=== PATIENT | male | born 1945 | race Caucasian/White ===

== ENCOUNTER → 2016-08-07 | Outpatient (CLI) | payer BC ==
[~2016-08-07] MED LIST: ALLO300T2 PO; AMLO2.5T2 PO; ASCA500 PO; ASPI-435 PO; CALC500C3 PO; CALC500C70 PO; CENTTAB41 PO; CHOL1000 PO; CILO100T PO; CILO100T15 PO; DGRI240 INJ; FEXO1TAB46 PO; IBUP-103 PO; NIAC500T11 PO; PSEU30TA20 PO; PSYL0.524; SAW450CA5 PO; SILV1CRE73 TOP; SOTA80TA PO; TAMS0.4C38 PO; TYLOTC500 PO; VITAMIN B 12 PO; XRL10 PO; [UNRECOGNIZED DRUG - OTHER] PO
== END | disposition home or self-care (01) ==
LOC: C.LAB1850 07:54
PROVIDERS: ATTEND Urology
DX: N40.2 Nodular prostate without lower urinary tract symptoms (principal); N40.1 Benign prostatic hyperplasia with lower urinary tract symptoms; R35.1 Nocturia

== ENCOUNTER → 2016-08-15 | Outpatient (CLI) | payer BC | END | disposition home or self-care (01) | LOC: C.LABSPEC 15:03 | PROVIDERS: ATTEND Urology | DX: N39.0 Urinary tract infection, site not specified (principal) ==

== ENCOUNTER → 2016-08-15 | Outpatient (CLI) | payer BC | END | disposition home or self-care (01) | LOC: C.PATHSPEC 15:15 | PROVIDERS: ATTEND Urology | DX: C61 Malignant neoplasm of prostate (principal) ==

== ENCOUNTER → 2016-08-29 | Outpatient (CLI) | payer BC ==
[2016-08-29 09:49] LABS: BLOOD UREA NITROGEN 22 mg/dl (7-18)
== END | disposition home or self-care (01) ==
LOC: C.LAB 08:15
PROVIDERS: ATTEND Urology
DX: C61 Malignant neoplasm of prostate (principal)

== ENCOUNTER → 2016-09-02 | Day surgery (SDC) | payer BC ==
[~2016-09-02] VITALS: Ht 177.8 cm; Wt 95.0 kg
[~2016-09-02] MED LIST changes: +OPTIRAY 320 IV PRN; +SODIUM CHLORIDE 0.9% 1000ML 1,000 ML IV SCH
[2016-09-02 09:34] VITALS: BP 161/81; PULSE 65; TEMP 36.6; O2SAT 99; Ht 177.8 cm; Wt 95.0 kg
--- NOTE | 2016-09-02 11:35 | DIAGNOSTIC IMAGING REPORT ---
ABDOMEN AND PELVIS CT WITH IV AND ORAL CONTRAST CT DOSE: 940.44 mGycm HISTORY: Prostate carcinoma prostate carcinoma TECHNIQUE: Multiaxial CT images of the abdomen and pelvis were performed following the use of intravenous and oral contrast. COMPARISON STUDY: None. FINDINGS: Pleural calcifications of both lung bases. Basilar parenchyma shows no evidence for infiltrative or nodular change. Liver enhances uniformly. Spleen is unremarkable. Pancreas is within normal limits. There are bilateral extrarenal pelves versus mild bilateral hydroureteronephrosis. There is a mildly distended to a slightly distended bladder. Prostate is moderately enlarged. There is moderate atherosclerotic change of the abdominal aorta. There is no significant perinephric adenopathy. There are several scattered colonic diverticuli with no evidence for diverticulitis. IMPRESSION: 1. Mild bilateral hydroureteronephrosis. 2. This potentially is on the basis of a component of bladder outlet obstruction and prostatic enlargement. 3. Scattered sigmoid diverticuli with no evidence of diverticulitis. 4. Basilar calcific pleural plaques 5. Mild degenerative change of the osseous structures with no true lytic or blastic components. 6. No evidence for metastatic disease based on this exam Electronically signed by: Vargas Yeh M.D. 09/02/2016 11:34 AM Dictated Date/Time: 09/02/2016 11:28 AM
--- NOTE | 2016-09-02 13:38 | DIAGNOSTIC IMAGING REPORT ---
WHOLE-BODY NUCLEAR BONE SCAN CLINICAL HISTORY: Prostate cancer. COMPARISON STUDY: CT scan of the chest dated 05/27/2013. Abdominal CT dated 09/02/2016. TECHNIQUE: Three hours following the IV administration of 26.4 mCi of technetium 99m MDP, whole body nuclear bone scan was performed in the anterior and posterior projections. FINDINGS: There is no abnormal osseous tracer deposition identified typical in appearance for bony metastatic disease. Typically degenerative uptake is identified in the shoulders, sternoclavicular joints, wrists, knees, ankles, feet, and the right first metatarsophalangeal joint. Typically degenerative activity is also seen in the thoracolumbar spine. There is pooling of tracer within the dilated left renal collecting system consistent with hydronephrosis. This was seen on today's CT scan. Normal excreted activity is present within the right renal collecting system and the bladder. IMPRESSION: 1. There is no abnormal tracer deposition and typical in appearance for bony metastatic disease. 2. Multiple foci of typically degenerative activity as above. 3. Left-sided hydronephrosis is observed. Electronically signed by: Michael Alfredo M.D. 09/02/2016 1:37 PM Dictated Date/Time: 09/02/2016 1:31 PM
== END | disposition home or self-care (01) ==
LOC: C.MTU 09:02
PROVIDERS: ATTEND Urology
DX: C61 Malignant neoplasm of prostate (principal); N18.2 Chronic kidney disease, stage 2 (mild)

== ENCOUNTER → 2016-11-20 | Outpatient (CLI) | payer BC ==
[~2016-11-20] MED LIST changes: +GABA-113 PO; -IBUP-103 PO; -OPTIRAY 320 IV PRN; -SODIUM CHLORIDE 0.9% 1000ML 1,000 ML IV SCH; -[UNRECOGNIZED DRUG - OTHER] PO
[2016-11-20 10:32] LABS: URINE APPEARANCE CLEAR (CLEAR); URINE BILIRUBIN NEG (NEG); URINE COLOR YELLOW; URINE EPITHELIAL CELL AUTO 0-5 /lpf (0-5); URINE NITRITE NEG (NEG); URINE SPECIFIC GRAVITY 1.019 (1.000-1.030); UROBILINOGEN NEG (NEG)
[2016-11-20 10:34] LABS: HEMATOCRIT 40.1 % (42-52); MEAN CELL VOLUME 97.1 fL (80-100); MEAN CORPUSCULAR HEMOGLOBIN 31.7 pg (25-34); MEAN CORPUSCULAR HGB CONC 32.7 g/dl (32-36); PLATELET COUNT 256 K/uL (130-400); RED BLOOD COUNT 4.13 M/uL (4.7-6.1)
[2016-11-20 10:38] LABS: MANUAL MICROSCOPIC REQUIRED? NO; REVIEW REQ? NO
[2016-11-20 11:01] LABS: URINE PROTIEN/CREAT RATIO 0.1 (0-0.2); URINE TOTAL PROTEIN 12.8 mg/dl (0-11.9)
[2016-11-20 11:11] LABS: BLOOD UREA NITROGEN 21 mg/dl (7-18); BUN/CREATININE RATIO 19.4 (10-20); CALCIUM 9.1 mg/dl (8.5-10.1); CARBON DIOXIDE 29 mmol/L (21-32); CHLORIDE 106 mmol/L (98-107); GLUCOSE 91 mg/dl (70-99); PHOSPHORUS 3.5 mg/dl (2.5-4.9); POTASSIUM 4.1 mmol/L (3.5-5.1); SODIUM 139 mmol/L (136-145)
== END | disposition home or self-care (01) ==
LOC: C.LAB1850 09:26
PROVIDERS: ATTEND Internal Medicine Nephrology
DX: I12.9 Hypertensive chronic kidney disease with stage 1 through stage 4 chronic kidney disease, or unspecified chronic kidney disease (principal); N18.2 Chronic kidney disease, stage 2 (mild); E55.9 Vitamin D deficiency, unspecified; I73.9 Peripheral vascular disease, unspecified

== ENCOUNTER → 2016-12-15 | Outpatient (CLI) | payer BC ==
[~2016-12-15] MED LIST changes: -SAW450CA5 PO
--- NOTE | 2016-12-15 12:30 | DIAGNOSTIC IMAGING REPORT ---
ULTRASOUND OF THE CAROTID ARTERIES CLINICAL HISTORY: CAROTID ARTERY STENOSIS COMPARISON STUDY: 12/10/2012 TECHNIQUE: Real-time, grayscale, and color Doppler sonography of the carotid arteries was performed. Imaging reviewed in the transverse and longitudinal planes. NASCET criteria was utilized for stenosis calcification. FINDINGS: There is extensive atherosclerotic plaque present bilaterally. The peak systolic velocity within the right internal carotid artery is 106 cm/sec. The systolic velocity ratio of right internal to common carotid artery is 1.5. The peak systolic velocity within the left internal carotid artery is 199 cm/sec. The systolic velocity ratio left internal to common carotid artery is 2.3. Antegrade flow is seen in the vertebral arteries. The external carotid arteries are patent. Blood pressure in the right arm measured 134 mm/Hg. Blood pressure in the left arm measured 138 mm/Hg. IMPRESSION: Moderate bilateral atheromatous change. 50-69% stenosis of the left internal carotid artery. Electronically signed by: Jared Puga M.D. 12/15/2016 12:29 PM Dictated Date/Time: 12/15/2016 12:27 PM
== END | disposition home or self-care (01) ==
LOC: C.ULTR 11:03
PROVIDERS: ATTEND Surgery
DX: I65.29 Occlusion and stenosis of unspecified carotid artery (principal)

== ENCOUNTER → 2017-02-20 | Outpatient (CLI) | payer BC ==
[~2017-02-20] MED LIST changes: -GABA-113 PO
[2017-02-20 08:46] VITALS: BP 155/94; PULSE 69; TEMP 36.9; O2SAT 96
--- NOTE | 2017-02-20 10:41 | Radiation Oncology Follow-Up ---
Radiation Oncology Follow-Up Date of Visit Feb 20, 2017. Reason For Visit One-month follow-up and cancer survivorship care plan Radiation Completion Date 01/19/17 Diagnosis (1) Prostate cancer Status: Resolved Onset Date: 08/15/2016 Location: both lobes of the prostate Histology Subtype: adenocarcinoma Stage: ll Permanent Comment: Rising PSA, pretreatment PSA 42.8 Status post ultrasound-guided biopsies 08/15/2016 Adenocarcinoma of the prostate Joanne 4+3 and 4+4 Prostate volume 46.7 Prostate density 0.916 Initiation of hormone suppression, plan for continuation for 2 years Status post completion of radiation therapy with IMRT/IGRT 01/19/2017. Received 7,740 cGy. Last Edited By: Massiel Feliciano on Feb 20, 2017 10:41 History of Present Illness Mr. Baker is a 71-year-old gentleman with multiple comorbidities who has been suffering with low back pain and urinary obstructive symptoms. He was seen by Dr. George Anderson who evaluated the patient and did perform a digital rectal exam which did reveal a firm prostate gland that was very tender on the right side. The patient then had a PSA drawn on 08/07/[address] Anderson recommended a transrectal ultrasound-guided biopsy of the prostate which was completed on 08/15/2016 and revealed a 46.7 cc prostate gland. Pathology revealed prostate cancer involving 8/9 cores. The highest Burwell score was 4+4 and there was perineural invasion present. The patient did have a CT of the abdomen and pelvis and bone scan completed on 09/02/2016 which revealed no evidence of pelvic lymph node involvement or bony metastatic disease. The CT abdomen and pelvis did note mild bilateral hydroureteronephrosis potentially due to bladder outlet obstruction and prostatic enlargement. Dr. Anderson discuss treatment options including surgery potentially followed by adjuvant radiation therapy as well as androgen deprivation therapy with radiation therapy. Due to the patient's high risk prostate cancer, the patient has been started on firmagon by Dr. Anderson. We are now seeing the patient in consultation to discuss the role of radiation therapy. Currently, the patient is doing relatively okay. His urinary IPSS score is 19/ 35 and his EPIC QoL score is 29/60. He denies any hematuria but still has some mild rectal plane. He denies any rectal bleeding at this point. He did receive his first firmagon injection on 09/11/2016. All options of treatment were reviewed with patient. Ultimately his decision was to receive hormone suppression and external beam radiation therapy. The radiation was completed 01/19/2017. He received 7740 cGy. Interim History He is been stable from urinary standpoint since the end of treatment. Today he gave an AUA score of 11. At the end of treatment he had a score of 13. He completed expanded prostate cancer index composite for clinical practice and gave a score of 4 of 12 and urinary incontinence symptoms. He gave a score of 6 of 12 and urinary irritation symptoms. He gave a score of 7 of 12 and bowel symptoms. He gave a score of 11 of 12 and sexual symptoms. He gave a score of 7 of 12 and hormonal vitality symptoms. His total was 35 of 60. He does relate that he has been having problems with his right leg. 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 He has some swelling. He has pain which causes him to have difficulty completing work today. He is unable to take anti-inflammatories due to his renal status. Allergies Coded Allergies: [place] (Verified Allergy, Intermediate, "Tongue blisters with too many walnuts", 09/02/16) Azithromycin (Verified Allergy, Mild, "Temp spike", 09/02/16) Statins (Verified Allergy, Unknown, CREATINKINASE, 09/02/16) Morphine (Verified Adverse Reaction, Severe, "PASSED OUT", 09/02/16) Prednisone (Verified Adverse Reaction, Severe, LOWER EXTREMITY EDEMA, 09/02) Home Medications Scheduled Acetaminophen (Tylenol), 1,000 MG PO DAILY Allopurinol (Zyloprim), 300 MG PO DAILY Amlodipine Besylate (Norvasc), 5 MG PO DAILY Ascorbic Acid (Vitamin C *), 1,000 MG PO DAILY Aspirin (Aspirin 81), 81 MG PO DAILY Calcium Carbonate (Tums), 1 TAB PO DIRECTED Calcium/Vitamin D (Os-Jonn 500 Plus D), 1 TAB PO BID Cholecalciferol (Vitamin D3), 1 TABLET PO BID Cilostazol (Pletal), 100 MG PO QPM Q2DAY Cilostazol (Pletal), 100 MG PO QAM Degarelix Acetate (Firmagon), 240 MG INJ DIRECTED Fexofenadine Hcl (Meme), 180 MG PO DAILY Niacin (Niacin), 1,000 MG PO DAILY Silver Sulfadiazine (Silvadene), TOP BID Sotalol Hcl (Sotalol Hcl), 80 MG PO BID Tamsulosin Hcl (Flomax), 0.4 MG PO HS [Centrum Silver], 1 TABLET PO DAILY [Vitamin B 12], 1,000 MCG PO BID [Xrl10], 20 MG PO DAILY@1645 Scheduled PRN Pseudoephedrine (Sudafed), 30 MG PO Q4-6H PRN for Nasal Congestion Silver Sulfadiazine (Silvadene), 1 APPLN TOP BID PRN for Affected Skin Folds Miscellaneous Medications Psyllium (Metamucil) Review of Systems Gastrointestinal: Symptoms: WNL Oral: Symptoms: No Problems Respiratory: Symptoms: WNL Urinary: Symptoms: Burning Comments: very rare burning on urination, much better Skin: Symptoms: No Problems Additional Notes: He completed a distress management report and answered "no" to all questions other than he has worry about his diagnosis. He does have some feeling of depression related to this. He is concerned about getting around due to the length discomfort he's been having. We have asked him to see his PCP or vascular specialist in regards to his ongoing leg issues. Physical Exam Vital Signs Date Time Temp Pulse Resp B/P (MAP) Pulse Ox O2 Delivery O2 Flow Rate FiO2 02/20/17 08:46 36.9 69 20 155/94 96 Pain: Pain Onset: worse in last month Pain Duration: years intermittenly Side: Right Patient Pain Scale: 0 - 10 Initial Pain Intensity: 3.0 Pain Description: Sharp, Aching Additional Comments: pain is increased lately, can't go to work due to can' t stand for >4 hours Fatigue: None General Appearance: no apparent distress Eyes: normal inspection, EOMI ENT: normal ENT inspection, hearing grossly normal Respiratory/Chest: lungs clear, no respiratory distress, no accessory muscle use Cardiovascular: regular rate, rhythm, no gallop, no murmur Extremities: + pertinent finding (mild swelling and tenderness of the right calf.) Neurologic/Psychiatric: no motor/sensory deficits, alert, normal mood/affect Skin: warm/dry Laboratory Studies Test 11/20/16 09:29 White Blood Count 6.50 K/uL (4.8-10.8) Red Blood Count 4.13 M/uL (4.7-6.1) Hemoglobin 13.1 g/dL (14.0-18.0) Hematocrit 40.1 % (42-52) Mean Corpuscular Volume 97.1 fL (80-100) Mean Corpuscular Hemoglobin 31.7 pg (25-34) Mean Corpuscular Hemoglobin Concent 32.7 g/dl (32-36) RDW Standard Deviation 46.4 fL (36.4-46.3) RDW Coefficient of Variation 13.2 % (11.5-14.5) Platelet Count 256 K/uL (130-400) Mean Platelet Volume 9.0 fL (7.4-10.4) Urine Color YELLOW Urine Appearance CLEAR (CLEAR) Urine pH 5.0 (4.5-7.5) Urine Specific [place] 1.019 (1.000-1.030) Urine Protein NEG (NEG) Urine Glucose (UA) NEG (NEG) Urine Ketones NEG (NEG) Urine Occult Blood NEG (NEG) Urine Nitrite NEG (NEG) Urine Bilirubin NEG (NEG) Urine Urobilinogen NEG (NEG) Urine Leukocyte Esterase SMALL (NEG) Urine WBC (Auto) 5-10 /hpf (0-5) Urine RBC (Auto) 0-4 /hpf (0-4) Urine Hyaline Casts (Auto) 1-5 /lpf (0-5) Urine Epithelial Cells (Auto) 0-5 /lpf (0-5) Urine Bacteria (Auto) NEG (NEG) Urine Random Creatinine 99.0 mg/dl Urine Random Total Protein 12.8 mg/dl (0-11.9) Urine Protein/Creatinine Ratio 0.1 (0-0.2) Sodium Level 139 mmol/L (136-145) Potassium Level 4.1 mmol/L (3.5-5.1) Chloride Level 106 mmol/L (98-107) Carbon Dioxide Level 29 mmol/L (21-32) Anion Gap 4.0 mmol/L (3-11) Blood Urea Nitrogen 21 mg/dl (7-18) Creatinine 1.10 mg/dl (0.60-1.40) Estimated GFR () 79.0 Estimated GFR (Non- 68.1 BUN/Creatinine Ratio 19.4 (10-20) Random Glucose 91 mg/dl (70-99) Calcium Level 9.1 mg/dl (8.5-10.1) Phosphorus Level 3.5 mg/dl (2.5-4.9) Albumin 3.6 gm/dl (3.4-5.0) 25-Hydroxy Vitamin D Total 33.0 ng/ml (30-100) Parathyroid Hormone (Intact) 34.5 pg/mL (11.1-79.5) Additional Studies He had a PSA 02/16/2017. This was 0.2. Assessment & Plan Plan: The patient was also seen today by Dr. St. For the issues he is having with his right lower extremity we have asked him to see his primary physician or vascular specialist. He has a follow-up appointment with Dr. Anderson. He'll continue hormone suppression through Dr. Anderson's office. He 'll be seeing him every 4 months and having recheck PSAs. Today we completed a cancer survivorship care plan. A copy the document was given to the patient. We asked him to return to our office in 6 months. He has a written order for a PSA before his next visit. He may call if he has any questions or concerns in the interim. ADDENDUM: I agree with note created by Massiel Feliciano PA-C. I reviewed the patient's chart and information with her. I have examined and evaluated the patient. I reviewed relevant clinical information and answered the patient's and /or family's questions. GENETIC SCIENTIST Total Time In Follow-Up I spent 20 minutes speaking to the patient performing examination. I spent 20 minutes reviewing information, preparing the survivorship document, and completing this note. I spent 15 minutes examining and counseling the patient. GENETIC SCIENTIST Copy To Isaac Parekh D.O.; George Anderson M.D.
== END | disposition home or self-care (01) ==
LOC: C.ONC 08:33
PROVIDERS: ATTEND Physician Assistant Medical
DX: Z08 Encounter for follow-up examination after completed treatment for malignant neoplasm (principal); Z92.3 Personal history of irradiation; Z85.46 Personal history of malignant neoplasm of prostate

== ENCOUNTER → 2017-02-26 | Outpatient (CLI) | payer BC ==
[2017-02-26 10:07] LABS: HEMATOCRIT 37.5 % (42-52); MEAN CELL VOLUME 98.9 fL (80-100); MEAN CORPUSCULAR HEMOGLOBIN 33.2 pg (25-34); MEAN CORPUSCULAR HGB CONC 33.6 g/dl (32-36); MEAN PLATELET VOLUME 8.9 fL (7.4-10.4); PLATELET COUNT 245 K/uL (130-400); RED BLOOD COUNT 3.79 M/uL (4.7-6.1); WHITE BLOOD COUNT 4.55 K/uL (4.8-10.8)
[2017-02-26 10:44] LABS: ALT/SGPT 21 U/L (12-78); AST/SGOT 15 U/L (15-37); BLOOD UREA NITROGEN 18 mg/dl (7-18); BUN/CREATININE RATIO 15.2 (10-20); CARBON DIOXIDE 28 mmol/L (21-32); CHLORIDE 107 mmol/L (98-107); GLUCOSE 116 mg/dl (70-99); POTASSIUM 4.3 mmol/L (3.5-5.1); SODIUM 140 mmol/L (136-145)
[2017-02-26 10:47] LABS: ALB/GLOB RATIO 0.9 (0.9-2); ALKALINE PHOSPHATASE 110 U/L (45-117)
[2017-02-26 13:01] LABS: URINE APPEARANCE CLEAR (CLEAR); URINE BILIRUBIN NEG (NEG); URINE COLOR DK YELLOW; URINE EPITHELIAL CELL AUTO 0-5 /lpf (0-5); URINE NITRITE NEG (NEG); URINE SPECIFIC GRAVITY 1.026 (1.000-1.030); UROBILINOGEN NEG (NEG)
[2017-02-26 13:07] LABS: URINE PROTIEN/CREAT RATIO 0.1 (0-0.2); URINE TOTAL PROTEIN 19.3 mg/dl (0-11.9)
[2017-02-26 13:13] LABS: MANUAL MICROSCOPIC REQUIRED? NO; REVIEW REQ? NO
== END | disposition home or self-care (01) ==
LOC: C.LAB1850 09:08
PROVIDERS: ATTEND Internal Medicine Nephrology
DX: N18.2 Chronic kidney disease, stage 2 (mild) (principal); E55.9 Vitamin D deficiency, unspecified; E78.5 Hyperlipidemia, unspecified; C61 Malignant neoplasm of prostate; I12.9 Hypertensive chronic kidney disease with stage 1 through stage 4 chronic kidney disease, or unspecified chronic kidney disease

== ENCOUNTER → 2017-06-04 | Day surgery (SDC) | payer BC ==
[~2017-06-04] VITALS: Ht 176.5 cm; Wt 101.0 kg
[~2017-06-04] MED LIST changes: +GABA-113 PO; +OPTIRAY 320 IV PRN; +SODIUM CHLORIDE 0.9% 1000ML 1,000 ML IV SCH
[2017-06-04 12:08] VITALS: BP 152/77; PULSE 93; TEMP 36.8; O2SAT 98; BMI 32.4
[2017-06-04 12:22] VITALS: BP 152/77; PULSE 93; TEMP 36.8; O2SAT 98; Ht 176.5 cm; Wt 101.0 kg
--- NOTE | 2017-06-04 14:29 | DIAGNOSTIC IMAGING REPORT ---
SOFT TISSUE NECK WITH CLINICAL HISTORY: 71 years-old Male presenting with CERVICAL LYMPHADENOPATHY. TECHNIQUE: Multidetector CT of the neck was performed after the administration of intravenous contrast. IV contrast: 94 mL of Optiray 320. A dose lowering technique was used consistent with the principles of ALARA (as low as reasonably achievable). COMPARISON: None. CT DOSE (mGy.cm): The estimated cumulative dose is 615.95 mGy.cm. FINDINGS: Change Control Specialist topogram: Unremarkable. The right neck demonstrates an enlarged right submandibular lymph node measuring 13 mm in the short axis (series 3 image 231). Ill-defined soft tissue along the anterior old medial aspect of the right sternocleidomastoid, which appears to narrow the transiting right internal jugular vein. This ill-defined soft tissue is of the same attenuation as the adjacent right sternocleidomastoid muscle and is indistinguishable from it. A faint node within this region may be the source with extracapsular extension (series 3 image 223). An enlarged adjacent lymph node noted more inferiorly and posteriorly measuring 13 mm in long axis (series 3 image 255), posterior to the internal jugular vein but anterior to the posterior margin of the sternocleidomastoid. Additional more inferior node is less enlarged but with similar heterogeneous enhancement measuring 8 mm in the long axis (series 3 image 295), posterior to the posterior margin of both the sternocleidomastoid and left internal jugular vein. The left neck demonstrates a heterogeneously enhancing nodule in the left jugulodigastric region near the left angle the mandible, measuring 15 mm in the long axis (series 3 image 212). Several adjacent smaller lymph nodes. Slight asymmetry of the glossotonsillar sulcus on the right with suggestion of an enhancing mass at the right base of the tongue measuring 3.6 x 2.1 cm (series 3 image 217) series. This appears to cross the midline but does not significantly extend posterolaterally along the glossotonsillar sulcus towards the right tonsil. The valleculae are not effaced. Asymmetry of the piriform sinuses likely within the range of normal. Normal thyroid. Atherosclerosis of bilateral carotid arteries with atherosclerotic plaque narrowing the origin of the left internal carotid artery, which has a minimum diameter of 2.7 mm in comparison to the normal distal diameter of 4.2 mm (less than 50% stenosis). Mild degenerative changes of the cervical spine. Paranasal sinuses and mastoid air cells clear. Lung apices demonstrate smooth interlobular septal thickening. IMPRESSION: 1. Findings concerning for a 3.6 cm enhancing nodular mass at the right base of the tongue without michael extension posterolaterally along the glossotonsillar sulcus. Direct visualization is advised. 2. Bilateral heterogeneously enhancing lymph nodes concerning for metastatic spread of disease with central necrosis. Importantly, extracapsular extension of lymph node involvement is suspected given the ill-defined soft tissue mass infiltrating the right sternocleidomastoid muscle. The largest discrete lymph node in the right cervical chain measures 13 mm in the long axis, and the largest lymph node in the left cervical chain measures 15 mm in the long axis. The report will be called/faxed according to standard departmental protocol. Electronically signed by: Lee Verma M.D. 06/04/2017 2:28 PM Dictated Date/Time: 06/04/2017 2:14 PM
== END | disposition home or self-care (01) ==
LOC: C.MTU 11:26 → EDSTATUS 12:00
PROVIDERS: ATTEND Otolaryngology
DX: R22.0 Localized swelling, mass and lump, head (principal); R59.0 Localized enlarged lymph nodes

== ENCOUNTER → 2017-06-18 | Outpatient (CLI) | payer BC ==
[~2017-06-18] MED LIST changes: -OPTIRAY 320 IV PRN; -PSEU30TA20 PO; -PSYL0.524; -SODIUM CHLORIDE 0.9% 1000ML 1,000 ML IV SCH
[2017-06-18 09:24] LABS: HEMATOCRIT 37.2 % (42-52); MEAN CELL VOLUME 96.9 fL (80-100); MEAN CORPUSCULAR HEMOGLOBIN 32.3 pg (25-34); MEAN CORPUSCULAR HGB CONC 33.3 g/dl (32-36); MEAN PLATELET VOLUME 9.2 fL (7.4-10.4); PLATELET COUNT 215 K/uL (130-400); RED BLOOD COUNT 3.84 M/uL (4.7-6.1)
[2017-06-18 09:27] LABS: URINE APPEARANCE CLEAR (CLEAR); URINE BILIRUBIN NEG (NEG); URINE COLOR YELLOW; URINE EPITHELIAL CELL AUTO 0-5 /lpf (0-5); URINE NITRITE NEG (NEG); URINE PH 6.5 (4.5-7.5); URINE SPECIFIC GRAVITY 1.018 (1.000-1.030); UROBILINOGEN NEG (NEG)
[2017-06-18 09:29] LABS: MANUAL MICROSCOPIC REQUIRED? NO; REVIEW REQ? NO
[2017-06-18 09:43] LABS: CREATININE, URINE 77.6 mg/dl; URINE PROTIEN/CREAT RATIO 0.2 (0-0.2); URINE TOTAL PROTEIN 11.8 mg/dl (0-11.9)
[2017-06-18 09:51] LABS: ALT/SGPT 21 U/L (12-78); BLOOD UREA NITROGEN 16 mg/dl (7-18); BUN/CREATININE RATIO 16.2 (10-20); CALCIUM 9.2 mg/dl (8.5-10.1); CARBON DIOXIDE 25 mmol/L (21-32); CHLORIDE 102 mmol/L (98-107); CREATININE 1.01 mg/dl (0.60-1.40); GLUCOSE 89 mg/dl (70-99); SODIUM 134 mmol/L (136-145)
[2017-06-18 09:54] LABS: ALB/GLOB RATIO 0.9 (0.9-2); ALKALINE PHOSPHATASE 121 U/L (45-117); AST/SGOT 20 U/L (15-37)
== END | disposition home or self-care (01) ==
LOC: C.LAB1850 08:25
PROVIDERS: ATTEND Internal Medicine Nephrology
DX: N18.2 Chronic kidney disease, stage 2 (mild) (principal); I10 Essential (primary) hypertension; I73.9 Peripheral vascular disease, unspecified; E55.9 Vitamin D deficiency, unspecified

== ENCOUNTER → 2017-08-10 | Day surgery (SDC) | payer OTHER ==
[2017-08-05 07:51] VITALS: BMI 31.0
[~2017-08-10] VITALS: Ht 175.3 cm; Wt 95.5 kg
[~2017-08-10] MED LIST changes: +ACET-1256 PO; +ACETAMINOPHEN 325 MG TAB PO SCH; +AMLO-110 PO; -AMLO2.5T2 PO; -ASCA500 PO; +ASCO10003 PO; +ASPCH81X PO; -ASPI-435 PO; +ATROPINE SULFATE 0.1 MG/ML 5ML SYR IV PRN; +BUPIVACAINE 0.5 % 5 MG/1 ML MPF 30ML VIAL ONE; -CALC500C3 PO; -CALC500C70 PO; +CEFAZOLIN 2000MG IV PUSH 15 ML IV SCH; -CENTTAB41 PO; -CILO100T15 PO; +CYAN100020 PO; -DGRI240 INJ; +DGRI80 INJ; +EpHEDrine SULFATE INJ 50 MG/ML AMP IV PRN; +FENTANYL CITRATE INJ 50 MCG/1 ML 2 ML VIAL IV PRN; +FENTANYL CITRATE INJ 50 MCG/1 ML 2 ML VIAL ONE; -FEXO1TAB46 PO; +FEXO1TAB49 PO; +IBUPROFEN 600 MG TAB PO PRN; +KETAMINE HCL INJ 50 MG/ML 10 ML VIAL ONE; +LACTATED RINGER'S 1000ML 1,000 ML IV SCH; +LIDOCAINE 2% 20 MG/ML 5ML SYR IV ONE; +LIDOCAINE HCL 1% 20 ML VIAL ONE; +LIDOCAINE HCL 2% 2 ML VIAL (20MG/ML) ONE; +MIDAZOLAM HCL 1 MG/ML 2ML VIAL ONE; +MULT-1093 PO; +ONDA8TAB6 PO; +ONDANSETRON INJ 2 MG/ML 2 ML VIAL IV PRN; +OYST500T47 PO; +PHENYLEPHRINE 100MCG/ML 5ML SYR IV PRN; +PROPOFOL IV EMULSION 10 MG/ML 20 ML VIAL IV ONE; +RIVA1TAB4 PO; -SILV1CRE73 TOP; +SODIUM CHLORIDE 0.9% 1000ML 1,000 ML IV SCH; -TYLOTC500 PO; -VITAMIN B 12 PO; -XRL10 PO; +[UNRECOGNIZED DRUG - CODE]; +[UNRECOGNIZED DRUG - OTHER]
[2017-08-10 10:54] VITALS: BP 148/75; PULSE 65; TEMP 36.8; O2SAT 96; Ht 175.3 cm; Wt 95.5 kg
--- NOTE | 2017-08-10 13:09 | History & Physical Bridge Note ---
H&P Re-Evaluation Bridge Note: I have examined the patient, reviewed the History & Physical and in the interval since the performance of the History & Physical I have noted the following changes of clinical significance: No changes noted
--- NOTE | 2017-08-10 14:31 | [facility] Post Operative Brief Note ---
Immediate Operative Summary Operative Date Aug 10, 2017. Pre-Operative Diagnosis Need for Can Handler Central Venous Access Post-Operative Diagnosis Need for Can Handler Central Venous Access Procedure(s) Performed Placement of A-Port Surgeon Dr Billings Radiator Cleaner Surgeon(s) RONA Daniels Estimated Blood Loss 5cc Findings Consistent with Post-Op Diagnosis Specimens None per surgeon Drains None Anesthesia Type MAC Complication(s) none
--- NOTE | 2017-08-10 14:43 | Discharge Instructions ---
Discharge Instructions Date of Service Aug 10, 2017. Admission Reason for Admission: Circulatory System Disorder Discharge Discharge Diagnosis / Problem: Same, need for furnace liner central venous access Discharge Goals Goal(s): Improve disease control Activity Recommendations Activity Limitations: per Instructions/Follow-up section Lifting Limitations: no more than 10 pounds (with left arm for 1 week) Shower/Bathe: tomorrow (shower only) . Instructions / Follow-Up Instructions / Follow-Up MEDICATIONS: Resume previous medications unless instructed otherwise by your surgeon. * Ibuprofen 600 mg every 6 hours with food * Tylenol 650 mg every 4 hours, as needed for pain SPECIAL CARE INSTRUCTIONS: * Your A-port may be used immediately. * May shower in 24 hours. Let water run over area and pat dry. * Leave op-site dressing on for 2 days and then remove. * Call the surgeon's office with any questions or concerns - (ex. temperature higher than 101 degrees F, excessive bleeding or pain). FOLLOW UP VISIT: If not already scheduled, please call the office to schedule a two week follow- up appointment if there are any issues with the port. Office number Current Hospital Diet Patient's current hospital diet: Discharge Diet Recommended Diet: N/A Procedures Procedures Performed: Placement of A-Port Pending Studies Studies pending at discharge: no Medical Emergencies . Who to Call and When: Medical Emergencies: If at any time you feel your situation is an emergency, please call 911 immediately. . Non-Emergent Contact Non-Emergency issues call your: Primary Care Provider, Surgeon Call Non-Emergent contact if: your pain is worsening, wound has increased redness, wound has increased pain . "Provider Documentation" section prepared by Vargas Billings. . VTE Core Measure Inpt VTE Proph given/why not?: Treatment not indicated
--- NOTE | 2017-08-10 14:51 | Anesthesiology Progress Note ---
Anesthesia Post Op Note Date & Time Aug 10, 2017 at 14:51 Vital Signs Pain Intensity: 0 Vital Signs Past 12 Hours Date Time Temp Pulse Resp B/P (MAP) Pulse Ox O2 Delivery O2 Flow Rate FiO2 08/10/17 14:45 55 12 133/69 100 Oxymask 10 08/10/17 14:37 36.1 77 14 132/75 100 Oxymask 10 08/10/17 10:54 36.8 65 18 148/75 (99) 96 Room Air Notes Mental Status: alert / awake / arousable, participated in evaluation Pt Amnestic to Procedure: Yes Nausea / Vomiting: adequately controlled Pain: adequately controlled Airway Patency, RR, SpO2: stable & adequate BP & HR: stable & adequate Hydration State: stable & adequate Anesthetic Complications: no major complications apparent
--- NOTE | 2017-08-10 15:15 | DIAGNOSTIC IMAGING REPORT ---
CHEST ONE VIEW PORTABLE HISTORY: 72 years-old Male S/P placement of Aport status post placement of a left subclavian [id number] catheter. COMPARISON: Chest radiograph 05/28/2013, PET CT 06/24/2017 TECHNIQUE: Portable AP view of the chest FINDINGS: Cardiac silhouette is within normal limits. Atherosclerosis of the aorta. Left subclavian [id number] catheter is noted with distal tip terminating in the expected region of the mid SVC. Chronic bilateral reticular opacities are again seen in addition to bilateral calcified pleural plaques. No pneumothorax or large pleural effusion or lobar airspace consolidation. Bones of the chest appear grossly intact. IMPRESSION: 1. Status post placement of a left subclavian [id number] catheter with distal tip terminating in the region of the mid SVC. No postprocedural pneumothorax identified. 2. Chronic bilateral reticular opacities suggest scarring with calcified pleural plaques. The above report was generated using voice recognition software. It may contain grammatical, syntax or spelling errors. Electronically signed by: Mo Del Toro M.D. 08/10/2017 3:14 PM Dictated Date/Time: 08/10/2017 3:11 PM
[2017-08-10 15:26] VITALS: BP 131/63; PULSE 62; TEMP 36.5; O2SAT 99
[2017-08-10 15:56] VITALS: BP 141/78; PULSE 62; TEMP 36.6; O2SAT 99
--- NOTE | 2017-08-10 19:00 | OPERATIVE REPORT ---
DATE OF OPERATION: 08/10/2017 PREOPERATIVE DIAGNOSIS: Need for long-term central venous access. POSTOPERATIVE DIAGNOSIS: Same. PROCEDURE: Placement of A-port tunneled central venous access catheter with port. SURGEON: Dr. Billings. PAYLOADER MACHINE OPERATOR: Sherry Chowdhury PA-C FINDINGS: The tip of the catheter was placed in the superior vena cava near the junction with the right atrium. There was good blood return and it was easily flushed without leaking. TECHNIQUE: The patient was given a minimal intravenous sedation and the area was prepped and draped in the usual sterile fashion. A gore of the skin and subcutaneous tissue in the left infraclavicular area were anesthetized with 1% Xylocaine without epinephrine. The left subclavian vein was entered on the first attempt and the wire passed with ease. The tip of the wire was confirmed in the right atrium by fluoroscopy. A small incision was made in the skin at the exit site of the wire and a pocket was created in the subcutaneous tissue to ensure soft turn in the catheter. The site for the port was chosen and the skin and subcutaneous tissue superior to that area were anesthetized with 1% Xylocaine without epinephrine. Skin incision was made and was carried down through the subcutaneous tissue to the prepectoral fascia. Hemostasis was obtained at all times using cautery. A prepectoral pocket was created inferior to that incision and the port fit nicely. Introducer sheath device was passed over the wire under fluoroscopic guidance. The introducer and wire were removed. The catheter was passed through the sheath under fluoroscopic guidance and the tip was seen to enter the right atrium. The sheath was peeled. The catheter was then tunneled from the infraclavicular incision to the port incision. Fluoroscopy was used to size the catheter and it was then cut to size and attached to the port with ease. The port was secured to the prepectoral fascia with interrupted sutures of 2-0 Prolene. The port was accessed and there was good blood return and it was easily flushed without leaking. The port incision was closed with running 2-0 Vicryl in the deep subcutaneous tissue, running 3-0 Vicryl in the superficial subcutaneous tissue and running 4-0 Monocryl for the skin. The infraclavicular incision was closed with an interrupted 4-0 Monocryl subcuticular suture. Skin was cleansed, dried and a dressing placed. The estimated blood loss was 5 mL. Sponge, needle and instrument counts were correct x2 prior to closure. The patient tolerated the surgical procedure without complication and the patient was transferred to recovery. I attest to the content of the Intraoperative Record and any orders documented therein. Any exception s are noted below.
== END | disposition home or self-care (01) ==
LOC: C.ACU 10:20
PROVIDERS: ATTEND Surgery
DX: C01 Malignant neoplasm of base of tongue (principal); I48.91 Unspecified atrial fibrillation; I10 Essential (primary) hypertension; Z88.5 Allergy status to narcotic agent; Z90.89 Acquired absence of other organs; Z98.890 Other specified postprocedural states; Z79.01 Long term (current) use of anticoagulants; Z79.899 Other long term (current) drug therapy; Z87.891 Personal history of nicotine dependence; E66.9 Obesity, unspecified

== ENCOUNTER → 2017-09-23 | Outpatient (CLI) | payer OTHER ==
[~2017-09-23] MED LIST changes: -ACETAMINOPHEN 325 MG TAB PO SCH; -ATROPINE SULFATE 0.1 MG/ML 5ML SYR IV PRN; -BUPIVACAINE 0.5 % 5 MG/1 ML MPF 30ML VIAL ONE; +CALC-5 PO; -CEFAZOLIN 2000MG IV PUSH 15 ML IV SCH; -EpHEDrine SULFATE INJ 50 MG/ML AMP IV PRN; -FENTANYL CITRATE INJ 50 MCG/1 ML 2 ML VIAL IV PRN; -FENTANYL CITRATE INJ 50 MCG/1 ML 2 ML VIAL ONE; -IBUPROFEN 600 MG TAB PO PRN; -KETAMINE HCL INJ 50 MG/ML 10 ML VIAL ONE; -LACTATED RINGER'S 1000ML 1,000 ML IV SCH; -LIDOCAINE 2% 20 MG/ML 5ML SYR IV ONE; -LIDOCAINE HCL 1% 20 ML VIAL ONE; -LIDOCAINE HCL 2% 2 ML VIAL (20MG/ML) ONE; -MIDAZOLAM HCL 1 MG/ML 2ML VIAL ONE; +NUTR1.5L4 PEG; +ONDA-170 PO; -ONDA8TAB6 PO; -ONDANSETRON INJ 2 MG/ML 2 ML VIAL IV PRN; -OYST500T47 PO; -PHENYLEPHRINE 100MCG/ML 5ML SYR IV PRN; -PROPOFOL IV EMULSION 10 MG/ML 20 ML VIAL IV ONE; -SODIUM CHLORIDE 0.9% 1000ML 1,000 ML IV SCH; +[UNRECOGNIZED DRUG - SUPPLY] TOP
[2017-09-23 10:58] LABS: HEMATOCRIT 34.8 % (42-52); HEMOGLOBIN 11.7 g/dL (14.0-18.0); MEAN CELL VOLUME 90.6 fL (80-100); MEAN CORPUSCULAR HEMOGLOBIN 30.5 pg (25-34); MEAN CORPUSCULAR HGB CONC 33.6 g/dl (32-36); MEAN PLATELET VOLUME 9.4 fL (7.4-10.4); PLATELET COUNT 207 K/uL (130-400); RED CELL DISTRIBUTION WIDTH CV 14.5 % (11.5-14.5); RED CELL DISTRIBUTION WIDTH SD 47.6 fL (36.4-46.3); WHITE BLOOD COUNT 6.26 K/uL (4.8-10.8)
[2017-09-23 11:25] LABS: ALBUMIN 2.7 gm/dl (3.4-5.0); ALT/SGPT 43 U/L (12-78); AST/SGOT 30 U/L (15-37); BLOOD UREA NITROGEN 19 mg/dl (7-18); CALCIUM 9.1 mg/dl (8.5-10.1); CARBON DIOXIDE 27 mmol/L (21-32); CREATININE 0.85 mg/dl (0.60-1.40); GLUCOSE 99 mg/dl (70-99); POTASSIUM 3.8 mmol/L (3.5-5.1); SODIUM 138 mmol/L (136-145)
[2017-09-23 11:30] LABS: ALKALINE PHOSPHATASE 141 U/L (45-117); TOTAL PROTEIN 7.2 gm/dl (6.4-8.2)
== END | disposition home or self-care (01) ==
LOC: C.LAB1850 09:55
PROVIDERS: ATTEND Internal Medicine Nephrology
DX: C61 Malignant neoplasm of prostate (principal); N18.2 Chronic kidney disease, stage 2 (mild); I12.9 Hypertensive chronic kidney disease with stage 1 through stage 4 chronic kidney disease, or unspecified chronic kidney disease; E55.9 Vitamin D deficiency, unspecified

== ENCOUNTER → 2017-10-30 | Outpatient (CLI) | payer OTHER ==
[2017-10-30 07:31] VITALS: BP 114/68; PULSE 68; TEMP 36.9; O2SAT 98
--- NOTE | 2017-10-30 11:11 | Radiation Oncology Follow-Up ---
Radiation Oncology Follow-Up Date of Visit Oct 30, 2017. Reason For Visit One-month follow-up Radiation Completion Date 09/30/17 to base of tongue and lymph node mets;L-spine 09/09/17 Diagnosis (1) Squamous cell carcinoma of base of tongue Status: Acute Onset Date: 06/17/2017 Location: Base of tongue with node metastasis Stage: IV Permanent Comment: Carcinoma of the skin of the preauricular area Swelling and discomfort leading to the CT 06/04/2017 Finding of a mass of the right base of the tongue Status post FNA of a right level II lymph node 06/17/2017 Squamous cell carcinoma with focal keratinization Status post PET/CT 06/24/2017 FDG avidity at L4, metastatic squamous cell carcinoma versus metastatic prostate carcinoma Biopsy to be scheduled. Clinical stage T3 N2c M1 Status post completion of combined radiation and chemotherapy. Radiation was completed September 30, 2017. He received 6996 cGy Last Edited By: Massiel Feliciano on Oct 09, 2017 10:11 (2) Prostate cancer Status: Acute Onset Date: 08/15/2016 Location: Both lobes of the prostate Histology Subtype: Adenocarcinoma Stage: IV Permanent Comment: Rising PSA, pretreatment PSA 42.8 Status post ultrasound-guided biopsies 08/15/2016 Adenocarcinoma of the prostate Joanne 4+3 and 4+4 Prostate volume 46.7 Prostate density 0.916 Initiation of hormone suppression, plan for continuation for 2 years Status post completion of radiation therapy with IMRT/IGRT 01/19/2017. Received 7,740 cGy. 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 He received 3000 cGy. Last Edited By: Massiel Feliciano on Oct 09, 2017 10 :11 History of Present Illness Mr. Baker has multiple comorbidities who has been suffering with low back pain and urinary obstructive symptoms. He was seen by Dr. George Anderson who evaluated the patient and did perform a digital rectal exam which did reveal a firm prostate gland that was very tender on the right side. The patient then had a PSA drawn on 08/07/[address] Anderson recommended a transrectal ultrasound-guided biopsy of the prostate which was completed on 04/2017 and revealed a 46.7 cc prostate gland. Pathology revealed prostate cancer involving 8/9 cores. The highest Cavendish score was 4+4 and there was perineural invasion present. The patient did have a CT of the abdomen and pelvis and bone scan completed on 09/02/2016 which revealed no evidence of pelvic lymph node involvement or bony metastatic disease. The CT abdomen and pelvis did note mild bilateral hydroureteronephrosis potentially due to bladder outlet obstruction and prostatic enlargement. Dr. Anderson discuss treatment options including surgery potentially followed by adjuvant radiation therapy as well as androgen deprivation therapy with radiation therapy. Due to the patient's high risk prostate cancer, the patient has been started on firmagon by Dr. Anderson. We are now seeing the patient in consultation to discuss the role of radiation therapy. Currently, the patient is doing relatively okay. His urinary IPSS score is 19/ 35 and his EPIC QoL score is 29/60. He denies any hematuria but still has some mild rectal plane. He denies any rectal bleeding at this point. He did receive his first firmagon injection on 09/11/2016. All options of treatment were reviewed with patient. Ultimately his decision was to receive hormone suppression and external beam radiation therapy. The radiation was completed 01/19/2017. He received 7740 cGy. Mr. Baker has continued grade of follow-up with Dr. Anderson. He is been having monthly Fermagon injections. He had a PSA 02/16/2017 that was 0.2. He had a PSA on 06/11/2017 and that was found to be 2.9. He has had a known history of multiple skin cancers that have been removed. He has had for prior Mohs procedures. He developed a skin cancer in the right preauricular area. This was removed. He unfortunately developed some pain and swelling. The swelling was noted in April. He also began to note decreased motility of the tongue. He also had a change in his voice. He had noted this as well as his . Due to the swelling a CT was obtained on 06/04/2017.IMPRESSION:1. Findings concerning for a 3.6 cm enhancing nodular mass at the right base of the tongue without michael extension posterolaterally along the glossotonsillar sulcus. Direct visualization is advised. 2. Bilateral heterogeneously enhancing lymph nodes concerning for metastatic spread of disease with central necrosis. Importantly, extracapsular extension of lymph node involvement is suspected given the ill-defined soft tissue mass infiltrating the right sternocleidomastoid muscle. The largest discrete lymph node in the right cervical chain measures 13 mm in the long axis, and the largest lymph node in the left cervical chain measures 15 mm in the long axis. He then underwent a biopsy on 06/17/2017. Biopsy was taken from a right level II lymph node. This was an FNA area this revealed malignant cells. Squamous cell carcinoma, with focal keratinization. Specimen [id number]. He was sent for a PET scan 06/24/2017. This showed a large ill-defined region of metabolic activity at the tongue base, representing known primary tumor. Irregular metabolically active soft tissue extending into the right level IIA neck. Metastatic lymphadenopathy is favored with direct tumor extension being less likely. Invasion/involvement of local structures is better depicted on recently obtained contrast enhanced CT of the neck. Bilateral metastatic cervical lymphadenopathy. Metabolically active metastasis in L4 vertebral body with associated mild compression deformity and suspected superior endplate erosion. Questionable metabolic focus in the spinous process of L2 made represent additional site of metastatic disease. He has had a 10 pound weight loss since April. He notes some difficulty with lying on his back to sleep at night. He has to breathe through his mouth. He had been seen by the head and neck tumor Board 07/08/2017 at [facility]. Consensus was a recommendation to biopsy the L4 FDG avidity. If the L4 lesion is prostate in origin and recommendation is for primary chemoradiation. If the L4 his metastatic squamous cell carcinoma than recommendation is for palliative chemotherapy radiation. Arrangements have been made for him to have a biopsy through interventional radiology and [facility] of the L4 lesion. Patient did not keep this appointment. He was concerned about having the biopsy while on Xarelto. Instructions were given and anticoagulation was held. He underwent a biopsy of the L4 vertebrae August 03, 2017. This showed atypical cells of undetermined significance. Where atypical epithelial cells, metastasis from prostate cannot be ruled out. With the findings of the studies and biopsy it was felt the patient should undergo radiation therapy to L4 for the oligo metastasis. He began treatment to the head neck region. He was then given the treatment to the lumbar spine also. Treatment to the lumbar spine was completed September 09, 2017. He received 3000 cGy. The treatment to the head and neck was completed on September 30, 2017. He received 6996 cGy. While receiving the treatment to the head and neck he received chemotherapy with Erbitux. Interim History Over the past month the skin irritation that he had following treatment steadily improved. He did use Silvadene and Aquaphor. The areas of wet and dry desquamation healed without difficulty. He has had swelling of the right side of the tongue since completion of treatment. He states that this has remained the same and is not currently becoming smaller in size. There is associated pain. Pain radiates to his ear. He gives us a pain level of 1-2. There is discomfort with swallowing. He continued use the aloe vera juice and Manuka Honey. He uses Tylenol and gabapentin also for pain. Nutrition is mainly obtained through the PEG tube. He is able to swallow liquids but has not been able to chew food because of the difficulty with soreness of the tongue and movement of the tongue. He has had follow-up with ENT. He has noted generalized dry skin with mild itching. He is concerned about possible changes in his thyroid function. This was tested prior to treatment and was normal. He continues follow-up with Dr. Anderson in regards to the prostate cancer. He had a recheck PSA and that was improved at 2.9. This had been 13.2. He continues on the hormone suppression. He has discussed potential treatments with Dr. Anderson including Xtandi, Provenge, erleada, and Xofigo. He understands that the early data is only 4 non-metastatic cancer. We discussed briefly Xofigo in that he is not a candidate for this because he has responded to treatment. He is concerned about the Xtandi due to his renal function. He has discussed this with Dr. Chandra and the decision is that he could take medication but will need a urinalysis weekly. If he is found to have proteinuria the Xtandi will be discontinued. Allergies Coded Allergies: Benedict (Verified Allergy, Intermediate, "Tongue blisters with too many walnuts", 08/10/17) Azithromycin (Verified Allergy, Mild, "Temp spike", 08/10/17) Statins (Verified Allergy, Unknown, CREATINKINASE, 08/10/17) Morphine (Verified Adverse Reaction, Severe, "PASSED OUT", 08/10/17) Prednisone (Verified Adverse Reaction, Severe, LOWER EXTREMITY EDEMA, ) Home Medications Scheduled Acetaminophen (Tylenol), 2 TAB PO BID Allopurinol (Zyloprim), 300 MG PO QAM Amlodipine (Norvasc), 5 MG PO QAM Ascorbic Acid (Vitamin C), 1 TAB PO QAM Aspirin (Aspirin Chewable), 81 MG PO HS Calcium-Magnesium W/ Vitamin D (Calcium 500), 1 TAB PO BID Cholecalciferol (Vitamin D3), 1 TAB PO BID Cilostazol (Pletal), 100 MG PO DIRECTED Cyanocobalamin (Vitamin B12), 1 TAB PO BID Degarelix Acetate (Firmagon), 1 DOSE INJ Q28 DAYS Fexofenadine Hcl (Meme Allergy), 1 TAB PO QAM Gabapentin (Neurontin), 300 MG PO BID Multiple Vitamins W/ Minerals (Centrum Silver 50+Men), 1 TAB PO QAM Niacin (Niacin), 1,000 MG PO HS Nutritional Supplements (Isosource 1.5 Ojnn), 4 CAN PEG DAILY Rivaroxaban (Xarelto), 20 MG PO QAM Sodium Fluoride (Dental) (Prevident 5000 Plus), 1 DOSE DIRECTED Sotalol Hcl (Sotalol Hcl), 1 TAB PO BID Tamsulosin Hcl (Flomax), 0.4 MG PO HS [Dental Gel - Oxygene], 1 APPLN TOP HS [Sodium Flouride], 1 DOSE DIRECTED Scheduled PRN Ondansetron Hcl (Zofran), 8 MG PO Q8H PRN for Nausea Review of Systems Gastrointestinal: GI Comments: 2 BMs/day;Formed stools;No fiber supplements; Oral: Symptoms: Scant Saliva/Dry Mouth, Saliva amt. Increased, Thick/Viscid/Mucid Saliva Other Oral Symptoms: See below notations;Increased phlegm; Respiratory: Symptoms: WNL Urinary: Comments: "Very irregular" due to amount of fluids he takes to get pills down; Skin: Symptoms: No Problems Additional Notes: He completed a distress management report and answered "no" to all questions other than he has concerns about eating, pain, sleep, and his medical treatment choices. Physical Exam Vital Signs Date Time Temp Pulse Resp B/P (MAP) Pulse Ox O2 Delivery O2 Flow Rate FiO2 10/30/17 07:31 36.9 68 16 114/68 98 ECOG Performance Status: 0 Fatigue: Mild General Appearance: no apparent distress Eyes: normal inspection, PERRL ENT: hearing grossly normal, + pertinent finding (Examination of the mouth reveals resolving mucositis. There is mild to moderate swelling of the right side of the tongue. This has continued mucositis. On palpation a ridge of fibrous tissue is noted at the base of the tongue. There is also a small ridge noted at the buccal mucosa near the angle of the jaw. He has good range of motion of the TMJ.) Neck: no adenopathy, thyroid normal, + pertinent finding (Skin has completely healed. There is no palpable adenopathy. There is slight firmness just below the angle of the jaw.) Respiratory/Chest: lungs clear, no respiratory distress, no accessory muscle use Cardiovascular: regular rate, rhythm, no gallop, no murmur Extremities: no pedal edema Neurologic/Psychiatric: no motor/sensory deficits, alert, normal mood/affect Skin: + pertinent finding (There is mild hyperpigmentation in the lumbar spine area. There is no tenderness.) Lymphatic: no adenopathy Pain Management Patient Reports Pain: Yes Initial Pain Intensity: 2.0 Pain Management Plan He has medications for pain management. He uses Tylenol and gabapentin. Laboratory Laboratory Results: not applicable Pathology Pathology Results: were reviewed, and pertinent findings noted in HPI Imaging Imaging Studies: were reviewed, and pertinent findings noted in HPI Assessment & Plan Plan: Patient was seen and examined by Dr. St. An order was given for him to have a TSH. He will be notified as to results. He will be continuing follow -up with Dr. St in medical oncology. There will be plans for a recheck PET scan in 2 months. He follows with Dr. Anderson and there are plans for initiation of Xtandi. He will continue to discuss this further with him. He will continue to use aloe vera juice and Manuka Honey for the mouth discomfort. He is planning to have his PEG tube removed because it caused continued discomfort. He will need to continue supplements to get proper nutrition. Today he saw the dietitian to discuss calorie intake. We asked him to return to our office in 3 months. He may call if he has any questions or concerns in the interim. Assessment & Plan (Attending) I agree with note created by Massiel Feliciano PA-C. I reviewed the patient's chart and information with her. I have examined and evaluated the patient. I reviewed relevant clinical information and answered the patient's and/or family' s questions. CARE PROGRAM RESIDENT Total Time In Follow-Up I spent 25 minutes speaking to the patient in performing examination. I spent 15 minutes reviewing information and completing this note. AK Total Time (Attending) In Follow-Up I spent 15 minutes examining and counseling the patient. CARE PROGRAM RESIDENT Copy To Rio Burk D.O.; Rio St M.D.; Isaac Parekh D.O.; George Anderson M.D.
== END | disposition home or self-care (01) ==
LOC: C.ONC 07:52
PROVIDERS: ATTEND Physician Assistant Medical
DX: Z08 Encounter for follow-up examination after completed treatment for malignant neoplasm (principal); Z92.3 Personal history of irradiation; Z85.810 Personal history of malignant neoplasm of tongue

== ENCOUNTER 2017-11-19 16:08 | Inpatient (IN) | payer OTHER ==
[~2017-11-19] VITALS: Ht 175.3 cm; Wt 83.2 kg
[2017-11-19] MEDS ORDERED: PIPERACILL/TAZOBAC IV 2.25 GM in DEXTROSE 5% 100ML 100 ML IV SCH (16:45)
[2017-11-19] MEDS ORDERED: PIPERACILL/TAZOBAC CONSULT ACTIVE PRN ×2 (16:45→21:30)
[2017-11-19] MEDS ORDERED: ACETAMINOPHEN 500 MG TAB PO STA (16:47)
[2017-11-19] MEDS ORDERED: SODIUM CHLORIDE 0.9% 500ML 500 ML IV ONE (17:00)
[2017-11-19] MEDS ORDERED: VANCOMYCIN IV 500 MG in SODIUM CHLORIDE 0.9% 250ML 250 ML IV STA (17:07)
[2017-11-19] MEDS ORDERED: PIPERACILLIN/TAZOBACTAM 4.5 GM/100ML D5W IV STA (17:09)
--- NOTE | 2017-11-19 17:14 | EMERGENCY ROOM VISIT NOTE ---
History First contact with patient: 16:14 Chief Complaint: FEVER Stated Complaint: 103.6 FEVER History of Present Illness 72M with a PMHx of current esophageal carcinoma, prostate CA with mets to L4 vertebrae who presents to the Emergency Room with complaints of fevers x 1 day. At home the patient measured his fevers to be 103F. Pt has also noticed erythema around his G-Tube site. Pt states that he has chronic discomfort at his G Tube ever since it was placed in July. Patient also has chronic R eye and R esophageal pain. Pt denies any acute worsening of his G Tube or R Ear/ Throat pain. Pt was seen be his photo technician today for AK on his head and given Triamcinolone cream for his abdomen. When he called his photo technician and informed them he had a fever of 103F, he was told to come to the ER. The last time the patient used the G tube was yesterday. Pt was last treated for his esophageal CA 3 months ago. Sees both Dr. St in oncology. Pt did receive chemo and radiation on his throat. ROS: +fevers, no chest pain, no SOB at rest, chronic cough. Review of Systems See HPI for pertinent positives and negatives. A total of ten systems were reviewed and were otherwise negative. Constitutional: + fever, + weakness, No chills, No weight loss Respiratory: + dyspnea on exertion (chronic), No cough, No sputum, No wheezing, No shortness of breath Cardiovascular: + claudication (chronic), No chest pain Abdomen: No pain, No nausea, No vomiting, No diarrhea, No constipation Musculoskeletal: No joint pain Genitourinary - Male: No hematuria Past Medical/Surgical History Medical Problems: (1) Cellulitis (2) Heart disease (3) Hx of bronchitis (4) Hypertension (5) Renal atrophy, one functioning kidney Surgical Problems: (1) Hx of appendectomy (2) S/P tonsillectomy and adenoidectomy Family History FH: CVA (cerebrovascular accident) FH: hypertension Social History Smoking Status: Never Smoker Marital Status: Occupation Status: employed Current/Historical Medications Scheduled Acetaminophen (Tylenol), 1,000 MG PO DAILY Allopurinol (Zyloprim), 300 MG PO DAILY Amlodipine (Norvasc), 5 MG PO DAILY Ascorbic Acid (Ascorbic Acid), 1,000 MG PO DAILY Aspirin (Aspirin), 81 MG PO DAILY Calcium Gluconate (Calcium Gluconate), 500 MG PO BID Cholecalciferol (Vitamin D3), 1 TAB PO BID Cilostazol (Pletal), 100 MG PO BID Cilostazol (Pletal), 100 MG PO DAILY Clindamycin Phosphate (Topical (Cleocin-T), 1 APPLN TOP QAM Cyanocobalamin (Vitamin B-12), 1,000 MCG PO BID Degarelix Acetate (Firmagon), 80 MG SQ MONTHLY Fexofenadine Hcl (Meme Allergy), 1 TAB PO DAILY Gabapentin (Neurontin), 300 MG PO TID Multiple Vitamin (Multivitamin), 1 TAB PO DAILY Niacin (Antihyperlipidemic) (Niacin Er), 1,000 MG PO DAILY Rivaroxaban (Xarelto), 20 MG PO DAILY Sotalol Hcl (Betapace), 80 MG PO BID Tamsulosin Hcl (Flomax), 0.4 MG PO DAILY Scheduled PRN Triamcinolone Acetonide (Topic (Triderm), 1 APPLN TOP BID PRN for RED RASH Physical Exam Vital Signs Date Time Temp Pulse Resp B/P (MAP) Pulse Ox O2 Delivery O2 Flow Rate FiO2 11/19/17 16:11 39.4 107 20 140/69 95 Room Air Physical Exam Gen: No acute distress. HEENT: Head - normocephalic and atraumatic. Pupils are equal, round, and reactive to light. Extraocular eye muscles are intact and sclera are anicteric. Ears - bilaterally patent canals with noninjected tympanic membranes and no evidence of hemotympanum. Nose - moist nasal mucosa without discharge. Mouth & Oropharynx - chronic changes to the mucus membranes s/p chemo treatment. white membranes. Neck: Supple; no JVD, nuchal rigidity, cervical lymphadenopathy, or auscultated bruits. Chronic skin changes over the neck, hyperpigmentation of the overlying skin around the neck. Heart: Tachycardia with regular rhythm. There is a normal S1 and S2 with no murmurs, clicks, or gallops appreciated. Lungs: Clear to auscultation bilaterally with no wheezes, rales, or rhonchi. Abdomen: Soft, completely nontender, nondistended, with good bowel sounds. There are no palpable pulsatile masses or hepatosplenomegaly. There is no guarding, rigidity, or rebound noted. There is a G Tube on the LUQ with surrounding erythema with flaking over the overlying skin, approx 10cm x 13cm. Area is warm but non tender. Extremities: No evidence of cyanosis, clubbing, or edema. There are easily palpable peripheral pulses. Neuro:The patient is awake and alert, oriented to day, time, and place. Muscle strength is 5/5 in all 4 extremities. The patient has equal brazer induction strength and equal pedal push and pull. There are no cerebellar signs. Medical Decision & Procedures ER Provider Diagnostic Interpretation: SINGLE VIEW CHEST CLINICAL HISTORY: Esophageal cancer. Aspiration. FINDINGS: 2 AP, portable, upright chest radiographs are compared to study dated 08/10/2017 and correlated with chest CT dated 05/27/2013. The examination is degraded by portable technique and patient rotation. A left subclavian central venous infusion port is unchanged in position. The cardiomediastinal silhouette is unremarkable. There is atherosclerotic calcification of the thoracic aorta. There are large bilateral calcified pleural plaques consistent with asbestos-related pleural disease. There is no evidence of superimposed airspace consolidation. This is similar in appearance to prior examinations. No large pleural effusion or pneumothorax is seen. The skeletal structures are osteopenic. The bony thorax is grossly intact. Degenerative change is noted throughout the thoracic spine. IMPRESSION: 1. No acute cardiopulmonary abnormality is identified. 2. Extensive bilateral calcified pleural plaques are similar to previous and consistent with asbestos-related pleural disease. Laboratory Results 11/19/17 17:04 Red Blood Count 3.61, Mean Corpuscular Volume 98.6, Mean Corpuscular Hemoglobin 33.0, Mean Corpuscular Hemoglobin Concent 33.4, Mean Platelet Volume 8.9, Neutrophils (%) (Auto) 82.7, Lymphocytes (%) (Auto) 7.7, Monocytes (%) (Auto) 9.2, Eosinophils (%) (Auto) 0.0, Basophils (%) (Auto) 0.1, Neutrophils # (Auto) 7.60, Lymphocytes # (Auto) 0.71, Monocytes # (Auto) 0.85, Eosinophils # (Auto) 0.00, Basophils # (Auto) 0.01 11/19/17 17:04 Test 11/19/17 00:00 11/19/17 17:04 Urine Color YELLOW Urine Appearance CLEAR (CLEAR) Urine pH 7.5 (4.5-7.5) Urine Specific [place] 1.015 (1.000-1.030) Urine Protein NEG (NEG) Urine Glucose (UA) NEG (NEG) Urine Ketones NEG (NEG) Urine Occult Blood NEG (NEG) Urine Nitrite NEG (NEG) Urine Bilirubin NEG (NEG) Urine Urobilinogen NEG (NEG) Urine Leukocyte Esterase NEG (NEG) Urine WBC (Auto) 0 /hpf (0-5) Urine RBC (Auto) 0-4 /hpf (0-4) Urine Hyaline Casts (Auto) 0 /lpf (0-5) Urine Epithelial Cells (Auto) 0-5 /lpf (0-5) Urine Bacteria (Auto) NEG (NEG) White Blood Count 9.20 K/uL (4.8-10.8) Red Blood Count 3.61 M/uL (4.7-6.1) Hemoglobin 11.9 g/dL (14.0-18.0) Hematocrit 35.6 % (42-52) Mean Corpuscular Volume 98.6 fL (80-100) Mean Corpuscular Hemoglobin 33.0 pg (25-34) Mean Corpuscular Hemoglobin Concent 33.4 g/dl (32-36) Platelet Count 151 K/uL (130-400) Mean Platelet Volume 8.9 fL (7.4-10.4) Neutrophils (%) (Auto) 82.7 % Lymphocytes (%) (Auto) 7.7 % Monocytes (%) (Auto) 9.2 % Eosinophils (%) (Auto) 0.0 % Basophils (%) (Auto) 0.1 % Neutrophils # (Auto) 7.60 K/uL (1.4-6.5) Lymphocytes # (Auto) 0.71 K/uL (1.2-3.4) Monocytes # (Auto) 0.85 K/uL (0.11-0.59) Eosinophils # (Auto) 0.00 K/uL (0-0.5) Basophils # (Auto) 0.01 K/uL (0-0.2) RDW Standard Deviation 63.6 fL (36.4-46.3) RDW Coefficient of Variation 17.7 % (11.5-14.5) Immature Granulocyte % (Auto) 0.3 % Immature Granulocyte # (Auto) 0.03 K/uL (0.00-0.02) Anion Gap 7.0 mmol/L (3-11) Est Creatinine Clear Calc Drug Dose 84.9 ml/min Estimated GFR () 104.4 Estimated GFR (Non- 90.0 BUN/Creatinine Ratio 20.1 (10-20) Lactic Acid Level 1.0 mmol/L (0.4-2.0) Calcium Level 9.0 mg/dl (8.5-10.1) Magnesium Level 1.9 mg/dl (1.8-2.4) Total Bilirubin 0.7 mg/dl (0.2-1) Aspartate Amino Transf (AST/SGOT) 18 U/L (15-37) Alanine Aminotransferase (ALT/SGPT) 14 U/L (12-78) Alkaline Phosphatase 115 U/L (45-117) Total Protein 7.4 gm/dl (6.4-8.2) Albumin 3.1 gm/dl (3.4-5.0) Globulin 4.3 gm/dl (2.5-4.0) Albumin/Globulin Ratio 0.7 (0.9-2) Medications Administered Medications (Trade) Dose Ordered Sig/Jennifer Route Start Time Stop Time Status Last Admin Dose Admin Sodium Chloride 500 ml @ 999 mls/hr Q31M ONCE IV 11/19/17 17:00 11/19/17 17:30 DC 11/19/17 17:00 999 MLS/HR Piperacillin Sod/ Tazobactam Sod (Zosyn Iv) 4.5 gm NOW STAT IV 11/19/17 17:09 11/19/17 17:10 DC 11/19/17 17:16 4.5 GM Vancomycin HCl 1500 mg/Sodium Chloride 530 ml @ 200 mls/hr 1800 ONCE IV 11/19/17 18:00 11/19/17 20:38 11/19/17 18:05 200 MLS/HR Medical Decision The patient's care and disposition was discussed with Dr. Nayak, Attending ED Physician. This is a 72M with fever. Differential diagnosis include viral syndrome, otitis , pharyngitis, pneumonia, cellulitis, influenza, meningitis, urinary tract infection, sepsis, bacteremia, as well as others were entertained. Triage Nursing notes were reviewed. ED Course included an extensive history and physical exam, labs, EKG and blood cultures. While lab work is mostly unremarkable, the patient's fever and expanding erythema on the abdomen is concerning for a rapidly expanding cellulitis. 4:15pm - Pt was seen and examined at bedside. 4:30pm - Case discussed with Dr. Nayak. Orders updated. Patient will be given broad spectrum Abx for cellulitis (Vanc and Zosyn - want MRSA coverage). ~ Unfortunately was in a critical care case, during this time patient was called for admission by Dr. Nayak ~ 6:15pm - Updated patient on lab findings and decision making process. Pt verbalized understanding. also present. Patient was resting comfortably in beds with IVF infusing. The pt was informed about the findings as listed above. All questions were answered. Head Trauma GCS Score: 15 Impression Primary Impression: Fever Additional Impression: Cellulitis Departure Information Dispostion Admitted as an inpatient Condition FAIR Referrals Isaac Parekh D.OSam (PCP) Patient Instructions My [facility] Resident Involvement: Resident Care Provided Care Provided: Adult Hospital Medicine Problem Qualifiers
[2017-11-19 17:15] LABS: BASO % 0.1 %; BASO ABS # 0.01 K/uL (0-0.2); HEMATOCRIT 35.6 % (42-52); HEMOGLOBIN 11.9 g/dL (14.0-18.0); IG# 0.03 K/uL (0.00-0.02); LYMPH % 7.7 %; LYMPH ABS # 0.71 K/uL (1.2-3.4); MEAN CELL VOLUME 98.6 fL (80-100); MEAN CORPUSCULAR HGB CONC 33.4 g/dl (32-36); MEAN PLATELET VOLUME 8.9 fL (7.4-10.4); MONO % 9.2 %; MONO ABS # 0.85 K/uL (0.11-0.59); NEUT % 82.7 %; PLATELET COUNT 151 K/uL (130-400); RED CELL DISTRIBUTION WIDTH CV 17.7 % (11.5-14.5); RED CELL DISTRIBUTION WIDTH SD 63.6 fL (36.4-46.3)
[2017-11-19] MEDS ORDERED: VANCOMYCIN CONSULT ACTIVE PRN ×3 (17:15→21:16)
--- NOTE | 2017-11-19 17:20 | EMERGENCY ROOM VISIT NOTE ---
History Report prepared by Gerardo: Stefano Cai Under the Supervision of: Dr. Michael Nayak M.D. First contact with patient: 16:16 Chief Complaint: FEVER Stated Complaint: 103.6 FEVER History of Present Illness The patient is a 72 year old male who presents to the Emergency Room with complaints of intermittent fevers beginning 24 hours ago. The patient states he has a history of esophageal carcinoma. He reports he had chemotherapy and radiation three months ago, and he had a G-tube placed. The patient notes he developed a rash around his G-tube insertion site. He states it developed yesterday and is worsening. The patient reports he was evaluated by his telescope repairer today and given a steroid cream. He notes he called his telescope repairer and informed them he had developed a fever. The patient states he was told to go to the ED. He reports his fever was 103 at home. The patient notes he always has pain around his G-tube. He reports he does not eat or drink anything orally. The patient notes he consumes everything through his G-tube. He states he also has right-sided throat pain and right ear pain that is thought to be from his cancer. The patient reports he also has a chronic cough with chronic congestion. The patient reports he only has one kidney. He denies new pain at his G-tube, burning with urination, diarrhea, new trouble urinating , new cough, new congestion. Source of History: patient Onset: 24 hours ago Symptom Intensity: 103 Quality: other (fevers) Timing: intermittent Associated Symptoms: No cough (new), No diarrhea Note: Associated symptoms: worsening rash around his G-tube site. Denies: new pain at his G-tube, burning with urination, new trouble urinating, new congestion. Review of Systems See HPI for pertinent positives & negatives. A total of 10 systems reviewed and were otherwise negative. Past Medical & Surgical Medical Problems: (1) Cellulitis (2) Heart disease (3) Hx of bronchitis (4) Hypertension (5) Renal atrophy, one functioning kidney Surgical Problems: (1) Hx of appendectomy (2) S/P tonsillectomy and adenoidectomy Family History FH: CVA (cerebrovascular accident) FH: hypertension Social History Smoking Status: Never Smoker Marital Status: Occupation Status: employed Current/Historical Medications Scheduled Acetaminophen (Tylenol), 1,000 MG PO DAILY Allopurinol (Zyloprim), 300 MG PO DAILY Amlodipine (Norvasc), 5 MG PO DAILY Ascorbic Acid (Ascorbic Acid), 1,000 MG PO DAILY Aspirin (Aspirin), 81 MG PO DAILY Calcium Gluconate (Calcium Gluconate), 500 MG PO BID Cholecalciferol (Vitamin D3), 1 TAB PO BID Cilostazol (Pletal), 100 MG PO BID Cilostazol (Pletal), 100 MG PO DAILY Clindamycin Phosphate (Topical (Cleocin-T), 1 APPLN TOP QAM Cyanocobalamin (Vitamin B-12), 1,000 MCG PO BID Degarelix Acetate (Firmagon), 80 MG SQ MONTHLY Fexofenadine Hcl (Meme Allergy), 1 TAB PO DAILY Gabapentin (Neurontin), 300 MG PO TID Multiple Vitamin (Multivitamin), 1 TAB PO DAILY Niacin (Antihyperlipidemic) (Niacin Er), 1,000 MG PO DAILY Rivaroxaban (Xarelto), 20 MG PO DAILY Sotalol Hcl (Betapace), 80 MG PO BID Tamsulosin Hcl (Flomax), 0.4 MG PO DAILY Scheduled PRN Triamcinolone Acetonide (Topic (Triderm), 1 APPLN TOP BID PRN for RED RASH Allergies Coded Allergies: [place] (Verified Allergy, Intermediate, "Tongue blisters with too many walnuts", 11/19/17) Azithromycin (Verified Allergy, Mild, "Temp spike", 11/19/17) Statins (Verified Allergy, Unknown, CREATINKINASE, 11/19/17) Morphine (Verified Adverse Reaction, Severe, "PASSED OUT", 11/19/17) Prednisone (Verified Adverse Reaction, Severe, LOWER EXTREMITY EDEMA, 11/19) Physical Exam Vital Signs Date Time Temp Pulse Resp B/P (MAP) Pulse Ox O2 Delivery O2 Flow Rate FiO2 11/19/17 18:25 108 18 138/77 95 Room Air 11/19/17 16:11 39.4 107 20 140/69 95 Room Air Physical Exam GENERAL: Patient is in no acute distress. HEENT: No acute trauma, normocephalic atraumatic, mucous membranes moist, no nasal congestion, no scleral icterus. NECK: No stridor, no adenopathy, no meningismus, trachea is midline. LUNGS: Clear to auscultation bilaterally when listening anteriorly, no wheeze, no rhonchi, breath sounds equal. HEART: Tachycardic with a regular rhythm. No murmurs. ABDOMEN: G-tube in place in the LUQ with surrounding erythema and warmth. This has spread beyond his dressing. Soft. No signs of peritonitis. EXTREMITIES: No cyanosis or edema, full range of motion of all the joints without pain or difficulty, no signs for acute trauma. NEUROLOGIC: Oriented x 3, no acute motor or sensory deficits, no focal weakness. SKIN: No rash, no jaundice, no diaphoresis. Medical Decision & Procedures ER Provider Diagnostic Interpretation: X-ray results as stated below per interpretation by me and the radiologist: SINGLE VIEW CHEST CLINICAL HISTORY: Esophageal cancer. Aspiration. FINDINGS: 2 AP, portable, upright chest radiographs are compared to study dated 08/10/2017 and correlated with chest CT dated 05/27/2013. The examination is degraded by portable technique and patient rotation. A left subclavian central venous infusion port is unchanged in position. The cardiomediastinal silhouette is unremarkable. There is atherosclerotic calcification of the thoracic aorta. There are large bilateral calcified pleural plaques consistent with asbestos-related pleural disease. There is no evidence of superimposed airspace consolidation. This is similar in appearance to prior examinations. No large pleural effusion or pneumothorax is seen. The skeletal structures are osteopenic. The bony thorax is grossly intact. Degenerative change is noted throughout the thoracic spine. IMPRESSION: 1. No acute cardiopulmonary abnormality is identified. 2. Extensive bilateral calcified pleural plaques are similar to previous and consistent with asbestos-related pleural disease. Electronically signed by: Michael Alfredo M.D. 11/19/2017 5:42 PM Dictated Date/Time: 11/19/2017 5:39 PM Laboratory Results 11/19/17 17:04 Red Blood Count 3.61, Mean Corpuscular Volume 98.6, Mean Corpuscular Hemoglobin 33.0, Mean Corpuscular Hemoglobin Concent 33.4, Mean Platelet Volume 8.9, Neutrophils (%) (Auto) 82.7, Lymphocytes (%) (Auto) 7.7, Monocytes (%) (Auto) 9.2, Eosinophils (%) (Auto) 0.0, Basophils (%) (Auto) 0.1, Neutrophils # (Auto) 7.60, Lymphocytes # (Auto) 0.71, Monocytes # (Auto) 0.85, Eosinophils # (Auto) 0.00, Basophils # (Auto) 0.01 11/19/17 17:04 Test 11/19/17 00:00 11/19/17 17:04 Urine Color YELLOW Urine Appearance CLEAR (CLEAR) Urine pH 7.5 (4.5-7.5) Urine Specific [place] 1.015 (1.000-1.030) Urine Protein NEG (NEG) Urine Glucose (UA) NEG (NEG) Urine Ketones NEG (NEG) Urine Occult Blood NEG (NEG) Urine Nitrite NEG (NEG) Urine Bilirubin NEG (NEG) Urine Urobilinogen NEG (NEG) Urine Leukocyte Esterase NEG (NEG) Urine WBC (Auto) 0 /hpf (0-5) Urine RBC (Auto) 0-4 /hpf (0-4) Urine Hyaline Casts (Auto) 0 /lpf (0-5) Urine Epithelial Cells (Auto) 0-5 /lpf (0-5) Urine Bacteria (Auto) NEG (NEG) White Blood Count 9.20 K/uL (4.8-10.8) Red Blood Count 3.61 M/uL (4.7-6.1) Hemoglobin 11.9 g/dL (14.0-18.0) Hematocrit 35.6 % (42-52) Mean Corpuscular Volume 98.6 fL (80-100) Mean Corpuscular Hemoglobin 33.0 pg (25-34) Mean Corpuscular Hemoglobin Concent 33.4 g/dl (32-36) Platelet Count 151 K/uL (130-400) Mean Platelet Volume 8.9 fL (7.4-10.4) Neutrophils (%) (Auto) 82.7 % Lymphocytes (%) (Auto) 7.7 % Monocytes (%) (Auto) 9.2 % Eosinophils (%) (Auto) 0.0 % Basophils (%) (Auto) 0.1 % Neutrophils # (Auto) 7.60 K/uL (1.4-6.5) Lymphocytes # (Auto) 0.71 K/uL (1.2-3.4) Monocytes # (Auto) 0.85 K/uL (0.11-0.59) Eosinophils # (Auto) 0.00 K/uL (0-0.5) Basophils # (Auto) 0.01 K/uL (0-0.2) RDW Standard Deviation 63.6 fL (36.4-46.3) RDW Coefficient of Variation 17.7 % (11.5-14.5) Immature Granulocyte % (Auto) 0.3 % Immature Granulocyte # (Auto) 0.03 K/uL (0.00-0.02) Anion Gap 7.0 mmol/L (3-11) Est Creatinine Clear Calc Drug Dose 84.9 ml/min Estimated GFR () 104.4 Estimated GFR (Non- 90.0 BUN/Creatinine Ratio 20.1 (10-20) Lactic Acid Level 1.0 mmol/L (0.4-2.0) Calcium Level 9.0 mg/dl (8.5-10.1) Magnesium Level 1.9 mg/dl (1.8-2.4) Total Bilirubin 0.7 mg/dl (0.2-1) Aspartate Amino Transf (AST/SGOT) 18 U/L (15-37) Alanine Aminotransferase (ALT/SGPT) 14 U/L (12-78) Alkaline Phosphatase 115 U/L (45-117) Total Protein 7.4 gm/dl (6.4-8.2) Albumin 3.1 gm/dl (3.4-5.0) Globulin 4.3 gm/dl (2.5-4.0) Albumin/Globulin Ratio 0.7 (0.9-2) Laboratory results reviewed by me. Medications Administered Medications (Trade) Dose Ordered Sig/Jennifer Route Start Time Stop Time Status Last Admin Dose Admin Sodium Chloride 500 ml @ 999 mls/hr Q31M ONCE IV 11/19/17 17:00 11/19/17 17:30 DC 11/19/17 17:00 999 MLS/HR Piperacillin Sod/ Tazobactam Sod (Zosyn Iv) 4.5 gm NOW STAT IV 11/19/17 17:09 11/19/17 17:10 DC 11/19/17 17:16 4.5 GM Vancomycin HCl 1500 mg/Sodium Chloride 530 ml @ 200 mls/hr 1800 ONCE IV 11/19/17 18:00 11/19/17 20:38 11/19/17 18:05 200 MLS/HR ECG Per My Interpretation Indication: tachycardia Rate (beats per minute): 98 Rhythm: normal sinus Findings: no acute ischemic change, no ectopy, other (No PVCs) ED Course 1614: The patient was evaluated in room B06 by the resident under my supervision. A complete history and physical exam was performed. 1647: Ordered Tylenol Tab 1000mg PO 1700: Ordered Sodium Chloride 500 ml @ 999 mls/hr IV 1701: The patient was evaluated in room B06 by me. A complete history and physical exam was performed. 1709: Ordered Zosyn 4.5mg IV 175: I discussed the patient's case with DUANE Castillo [facility]ist. The patient will be evaluated for further management and care. 1800: Ordered Vancomycin HCl 1500mg/Sodium Chloride 530ml @ 200mls/hr 1824: Upon reexamination, the patient is resting. The resident discussed results and treatment plan with the patient. He verbalizes agreement and understanding. The patient will be evaluated for further management. Medical Decision The patient is a 72 year old male who presents to the ED with complaints of intermittent fevers. Differential diagnoses considered include sepsis, bacteremia, pneumonia, UTI, cellulitis, electrolyte imbalance, dehydration, viral illness. There is no leukocytosis or worrisome anemia. No significant electrolyte abnormality, kidney failure or hepatitis. Lactic acid level is not elevated making severe sepsis less likely. Blood cultures are pending. Chest film shows some chronic changes to both lungs, no acute infiltrate. Urinalysis does not show infection. On exam, the patient did have a cellulitis along the left upper quadrant around the insertion site to his G-tube. He was febrile and tachycardic. The patient was given oral Tylenol, IV saline. He received IV Zosyn and IV vancomycin as antibiotic coverage. The patient requires a hospital stay. This cellulitis has come on quickly and spread rapidly. The patient only has 1 functioning kidney. He is at risk given his history of head and neck cancer and prostate cancer. I did speak with case management. The on-call hospitalist was consulted. Patient is aware of his findings. Medication Reconcilliation Current Medication List: was personally reviewed by me Blood Pressure Screening Patient's blood pressure: Elevated blood pressure Monitored by hospitalist. Consults Time Called: 1750 Consulting Physician: DUANE Castillo [facility] Returned Call: [phone] I discussed the patient's case with Ese Love, PRODUCT ACCOUNTANT, [facility]. The patient will be evaluated for further management and care. Impression Primary Impression: Abdominal wall cellulitis Additional Impressions: Fever Malignancy Scribe Attestation The scribe's documentation has been prepared under my direction and personally reviewed by me in its entirety. I confirm that the note above accurately reflects all work, treatment, procedures, and medical decision making performed by me. Departure Information Dispostion Being Evaluated By Hospitalist Referrals Isaac Parekh D.O. (PCP) Patient Instructions My [facility] Problem Qualifiers
[2017-11-19 17:37] LABS: ALBUMIN 3.1 gm/dl (3.4-5.0); CREATININE 0.81 mg/dl (0.60-1.40); POTASSIUM 3.9 mmol/L (3.5-5.1); TOTAL PROTEIN 7.4 gm/dl (6.4-8.2)
--- NOTE | 2017-11-19 17:43 | DIAGNOSTIC IMAGING REPORT ---
SINGLE VIEW CHEST CLINICAL HISTORY: Esophageal cancer. Aspiration. FINDINGS: 2 AP, portable, upright chest radiographs are compared to study dated 08/10/2017 and correlated with chest CT dated 05/27/2013. The examination is degraded by portable technique and patient rotation. A left subclavian central venous infusion port is unchanged in position. The cardiomediastinal silhouette is unremarkable. There is atherosclerotic calcification of the thoracic aorta. There are large bilateral calcified pleural plaques consistent with asbestos-related pleural disease. There is no evidence of superimposed airspace consolidation. This is similar in appearance to prior examinations. No large pleural effusion or pneumothorax is seen. The skeletal structures are osteopenic. The bony thorax is grossly intact. Degenerative change is noted throughout the thoracic spine. IMPRESSION: 1. No acute cardiopulmonary abnormality is identified. 2. Extensive bilateral calcified pleural plaques are similar to previous and consistent with asbestos-related pleural disease. Electronically signed by: Michael Alfredo M.D. 11/19/2017 5:42 PM Dictated Date/Time: 11/19/2017 5:39 PM
[2017-11-19] MEDS ORDERED: CALC500T PO (17:56)
[2017-11-19] MEDS ORDERED: ASPI-461 PO (17:56)
[2017-11-19] MEDS ORDERED: TYLOTC500 PO (17:56)
[2017-11-19] MEDS ORDERED: ALLO300T2 PO (17:56)
[2017-11-19] MEDS ORDERED: CYAN10005 PO (17:56)
[2017-11-19] MEDS ORDERED: CHOL1000 PO (17:56)
[2017-11-19] MEDS ORDERED: FEXO1TAB49 PO (17:56)
[2017-11-19] MEDS ORDERED: TAMS0.4C38 PO (17:56)
[2017-11-19] MEDS ORDERED: SOTA80TA20 PO (17:56)
[2017-11-19] MEDS ORDERED: NIAC1TAB56 PO (17:56)
[2017-11-19] MEDS ORDERED: AMLO-110 PO (17:56)
[2017-11-19] MEDS ORDERED: CILO100T PO ×2 (17:56)
[2017-11-19] MEDS ORDERED: MULTTAB58 PO (17:56)
[2017-11-19] MEDS ORDERED: TRIA0.1C2 TOP (17:56)
[2017-11-19] MEDS ORDERED: GABA-113 PO (17:56)
[2017-11-19] MEDS ORDERED: DGRI80 SQ (17:56)
[2017-11-19] MEDS ORDERED: RIVA1TAB4 PO (17:56)
[2017-11-19] MEDS ORDERED: ASCO100061 PO (17:56)
[2017-11-19] MEDS ORDERED: CLIN1GEL TOP (17:56)
[2017-11-19] MEDS ORDERED: VANCOMYCIN IV 1,500 MG in SODIUM CHLORIDE 0.9% 500ML 500 ML IV ONE (18:00)
[2017-11-19] MEDS ORDERED: ONDANSETRON INJ 2 MG/ML 2 ML VIAL IV PRN (18:30)
[2017-11-19] MEDS ORDERED: ACETAMINOPHEN 325 MG TAB PO PRN (18:30)
[2017-11-19] MEDS ORDERED: ENOXAPARIN 40 MG/0.4 ML SYR SQ SCH (18:30)
[2017-11-19] MEDS ORDERED: NUTR1.5L4 PEG (18:51)
[2017-11-19] MEDS ORDERED: [UNRECOGNIZED DRUG - CODE] PO (18:51)
[2017-11-19] MEDS ORDERED: IMPACT LIQ 1000 ML BAG PEG SCH (20:00)
[2017-11-19] MEDS ORDERED: TRIAMCINOLONE ACET 0.1% CR 15 GM TUBE EXT PRN (20:15)
[2017-11-19] MEDS ORDERED: OPTIRAY 320 IV PRN (20:30)
--- NOTE | 2017-11-19 20:42 | History and Physical ---
History & Physical Date & Time of Service: November 19, 2017 ~ 18:00 Chief Complaint: Fever Primary Care Physician: Isaac Parekh D.O. History of Present Illness 9-year-old male who presents the ED with fever. 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 Patient completed radiation and chemotherapy last month for the tongue cancer and radiation therapy to his spine metastases. A couple of days ago, patient noted increased redness around his PEG tube site. It has significantly gotten worse over the past 2 days. Patient had a fever today of 103.6 at home. He reports chronic drainage from around the PEG tube site, has not noticed any change in the drainage. He had been taking some food and liquids and by mouth however developed a mucositis and has been unable to recently. He denies abdominal pain, nausea, vomiting, diarrhea. No chest pain , palpitations, shortness of breath, lightheadedness, dizziness, diaphoresis, or syncopal events. He denies any urinary symptoms. In the ED, patient is febrile at 39.4 and mildly tachycardic in the low 100s. No leukocytosis and lactic acid is normal. In the ED, patient was given IV Zosyn, IV vancomycin, IVF, and Tylenol. Past Medical/Surgical History Medical Problems: (1) Abdominal aortic aneurysm Permanent Comment: Measured 3.[address] from 09/2017 Status: Chronic (2) Atrial fibrillation Status: Chronic (3) Hypertension Status: Chronic (4) Prostate cancer Permanent Comment: Rising PSA, pretreatment PSA 42.8 Status post ultrasound-guided biopsies 08/15/2016 Adenocarcinoma of the prostate [place] 4+3 and 4+4 Prostate volume 46.7 Prostate density 0.916 Initiation of hormone suppression, plan for continuation for 2 years Status post completion of radiation therapy with IMRT/IGRT 01/19/2017. Received 7,740 cGy. 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 He received 3000 cGy. Status: Chronic (5) PVD (peripheral vascular disease) Status: Chronic (6) Renal atrophy, one functioning kidney Status: Chronic (7) Squamous cell carcinoma of base of tongue Permanent Comment: Carcinoma of the skin of the preauricular area Swelling and discomfort leading to the CT 06/04/2017 Finding of a mass of the right base of the tongue Status post FNA of a right level II lymph node 06/17/2017 Squamous cell carcinoma with focal keratinization Status post PET/CT 06/24/2017 FDG avidity at L4, metastatic squamous cell carcinoma versus metastatic prostate carcinoma Biopsy to be scheduled. Clinical stage T3 N2c M1 Status post completion of combined radiation and chemotherapy. Radiation was completed September 30, 2017. He received 6996 cGy Status: Chronic Surgical Problems: (1) History of right-sided carotid endarterectomy Status: Chronic (2) Hx of appendectomy Status: Chronic (3) S/P tonsillectomy and adenoidectomy Status: Chronic Family History FH: CVA (cerebrovascular accident) FATHER MOTHER FH: hypertension FATHER MOTHER Social History Smoking Status: Never Smoker Alcohol Use: Former heavy alcohol use Drug Use: marijuana (Former) Marital Status: Immunizations History of Influenza Vaccine: Yes Influenza Vaccine Date: Mar 19, 2017 History of Tetanus Vaccine?: Yes Tetanus Immunization Date: Sep 06, 2007 History of Pneumococcal: Yes Pneumococcal Date: Oct 18, 1959 History of Hepatitis B Vaccine: Yes Hepatitis Immunization Date: May 28, 2010 Allergies Coded Allergies: [place] (Verified Allergy, Intermediate, "Tongue blisters with too many walnuts", 11/19/17) Azithromycin (Verified Allergy, Mild, "Temp spike", 11/19/17) Statins (Verified Allergy, Unknown, CREATINKINASE, 11/19/17) Morphine (Verified Adverse Reaction, Severe, "PASSED OUT", 11/19/17) Prednisone (Verified Adverse Reaction, Severe, LOWER EXTREMITY EDEMA, 11/19) Home Medications Scheduled Acetaminophen (Tylenol), 1,000 MG PO DAILY Allopurinol (Zyloprim), 300 MG PO DAILY Amlodipine (Norvasc), 5 MG PO DAILY Ascorbic Acid (Ascorbic Acid), 1,000 MG PO DAILY Aspirin (Aspirin), 81 MG PO DAILY Calcium Gluconate (Calcium Gluconate), 500 MG PO BID Cholecalciferol (Vitamin D3), 1 TAB PO BID Cilostazol (Pletal), 100 MG PO BID Cilostazol (Pletal), 100 MG PO DAILY Clindamycin Phosphate (Topical (Cleocin-T), 1 APPLN TOP QAM Cyanocobalamin (Vitamin B-12), 1,000 MCG PO BID Fexofenadine Hcl (Meme Allergy), 1 TAB PO DAILY Gabapentin (Neurontin), 300 MG PO BID Inositol Niacinate (Niacin Flush Free), 2 CAP PO DAILY Multiple Vitamin (Multivitamin), 1 TAB PO DAILY Nutritional Supplements (Isosource 1.5 Jonn), 500 ML PEG BID Rivaroxaban (Xarelto), 20 MG PO DAILY Sotalol Hcl (Betapace), 80 MG PO BID Tamsulosin Hcl (Flomax), 0.4 MG PO DAILY Scheduled PRN Triamcinolone Acetonide (Topic (Triderm), 1 APPLN TOP BID PRN for RED RASH Review of Systems ROS per HPI, all other systems reviewed and negative Physical Exam Vital Signs Date Time Temp Pulse Resp B/P (MAP) Pulse Ox O2 Delivery O2 Flow Rate FiO2 11/19/17 18:25 108 18 138/77 95 Room Air 11/19/17 16:11 39.4 107 20 140/69 95 Room Air General Appearance: WD/WN, no apparent distress, + pertinent finding ( Chronically ill-appearing) Head: normocephalic, atraumatic Eyes: normal inspection, EOMI, sclerae normal ENT: hearing grossly normal, + muffled/hoarse voice (Due to mucous), + pertinent finding (Mucous membranes moist; right side of tongue edematous) Neck: supple, no JVD, trachea midline Respiratory/Chest: lungs clear, normal breath sounds, no respiratory distress Cardiovascular: no edema, normal peripheral pulses, + tachycardia (Heart rate in the low 100s) Abdomen/GI: normal bowel sounds, soft, no organomegaly, + pertinent finding ( PEG tube in place to left upper quadrant with significant surrounding erythema, warmth to touch, PEG tube site tender) Extremities/Musculoskelatal: normal inspection, no calf tenderness, normal capillary refill Neurologic/Psych: no motor/sensory deficits, alert, normal mood/affect, oriented x 3 Skin: normal color, warm/dry Diagnostics Laboratory Results Results Past 24 Hours Test 11/19/17 00:00 11/19/17 17:04 Range/Units Urine Color YELLOW Urine Appearance CLEAR CLEAR Urine pH 7.5 4.5-7.5 Urine Specific [place] 1.015 1.000-1.030 Urine Protein NEG NEG Urine Glucose (UA) NEG NEG Urine Ketones NEG NEG Urine Occult Blood NEG NEG Urine Nitrite NEG NEG Urine Bilirubin NEG NEG Urine Urobilinogen NEG NEG Urine Leukocyte Esterase NEG NEG Urine WBC (Auto) 0 0-5 /hpf Urine RBC (Auto) 0-4 0-4 /hpf Urine Hyaline Casts (Auto) 0 0-5 /lpf Urine Epithelial Cells (Auto) 0-5 0-5 /lpf Urine Bacteria (Auto) NEG NEG White Blood Count 9.20 4.8-10.8 K/uL Red Blood Count 3.61 4.7-6.1 M/uL Hemoglobin 11.9 14.0-18.0 g/dL Hematocrit 35.6 42-52 % Mean Corpuscular Volume 98.6 80-100 fL Mean Corpuscular Hemoglobin 33.0 25-34 pg Mean Corpuscular Hemoglobin Concent 33.4 32-36 g/dl Platelet Count 151 130-400 K/uL Mean Platelet Volume 8.9 7.4-10.4 fL Neutrophils (%) (Auto) 82.7 % Lymphocytes (%) (Auto) 7.7 % Monocytes (%) (Auto) 9.2 % Eosinophils (%) (Auto) 0.0 % Basophils (%) (Auto) 0.1 % Neutrophils # (Auto) 7.60 1.4-6.5 K/uL Lymphocytes # (Auto) 0.71 1.2-3.4 K/uL Monocytes # (Auto) 0.85 0.11-0.59 K/uL Eosinophils # (Auto) 0.00 0-0.5 K/uL Basophils # (Auto) 0.01 0-0.2 K/uL RDW Standard Deviation 63.6 36.4-46.3 fL RDW Coefficient of Variation 17.7 11.5-14.5 % Immature Granulocyte % (Auto) 0.3 % Immature Granulocyte # (Auto) 0.03 0.00-0.02 K/uL Sodium Level 134 136-145 mmol/L Potassium Level 3.9 3.5-5.1 mmol/L Chloride Level 102 98-107 mmol/L Carbon Dioxide Level 25 21-32 mmol/L Anion Gap 7.0 3-11 mmol/L Blood Urea Nitrogen 16 7-18 mg/dl Creatinine 0.81 0.60-1.40 mg/dl Est Creatinine Clear Calc Drug Dose 84.9 ml/min Estimated GFR () 104.4 Estimated GFR (Non- 90.0 BUN/Creatinine Ratio 20.1 10-20 Random Glucose 109 70-99 mg/dl Lactic Acid Level 1.0 0.4-2.0 mmol/L Calcium Level 9.0 8.5-10.1 mg/dl Magnesium Level 1.9 1.8-2.4 mg/dl Total Bilirubin 0.7 0.2-1 mg/dl Aspartate Amino Transf (AST/SGOT) 18 15-37 U/L Alanine Aminotransferase (ALT/SGPT) 14 12-78 U/L Alkaline Phosphatase 115 45-117 U/L Total Protein 7.4 6.4-8.2 gm/dl Albumin 3.1 3.4-5.0 gm/dl Globulin 4.3 2.5-4.0 gm/dl Albumin/Globulin Ratio 0.7 0.9-2 Microbiology Results 11/19/17 Blood Culture, Received Pending 11/19/17 Blood Culture, Received Pending 11/19/17 Gram Stain, Ordered Pending 11/19/17 Wound Culture, Ordered Pending Diagnostic Radiology CXR IMPRESSION: 1. No acute cardiopulmonary abnormality is identified. 2. Extensive bilateral calcified pleural plaques are similar to previous and consistent with asbestos-related pleural disease. Impression Assessment and Plan CELLULITIS, POSSIBLE PEG TUBE INFECTION POSSIBLE EARLY SEPSIS -[facility] -Patient presenting with fever and increasing redness around PEG tube site -On presentation, febrile at 39.4 and tachycardic in the low 100s; no leukocytosis, lactic acid normal, BP stable -Recently completed chemotherapy and radiation treatments for tongue cancer -S/P Vanco and Zosyn in the ED, will continue with -Culture PEG tube site -Check CT ABD/pelvis to evaluate for abscess -GI consult to evaluate PEG tube -Hold on PEG tube feedings until evaluated by GI TONGUE CANCER WITH CERVICAL LYMPH NODE METASTASES PROSTATE CANCER WITH SPINE METASTASES MUCOSITIS -Recently completed chemotherapy and radiation for the tongue cancer and also radiation therapy for the spine metastases -Per patient, he is taking a 3 month break before he will start treatment for the prostate cancer -Follows with Dr. [address], Dr. Adiel St, Dr. Burk, Dr. Anderson -Was given Magic mouthwash for the mucositis however patient reports it causes increased tongue biting at night ATRIAL FIBRILLATION -Rhythm controlled on sotalol, will continue -Anticoagulated on Xarelto, will continue HYPERTENSION -BP controlled, continue amlodipine PVD -Continue Pletal DVT PROPHYLAXIS -Anticoagulated on Xarelto CODE STATUS -Patient is a full code as per my discussion with him. DISPOSITION -In my clinical judgment this beneficiary meets acute admission criteria, established by [facility], that includes being hospitalized through two midnights. Attending addendum: Patient seen and examined care coordinated with Ese DAVIS This is a 72-year-old male with complex medical history of metastatic prostate cancer, history of tongue cancer status post chemo and radiation treatment/PEG tube placement secondary to severe dysphagia Presented to ER with fever chills, cellulitis around the PEG tube insertion site Patient reports he always noted some drainage around the PEG tube, last few days noted to have redness and tenderness, yesterday spiked temperature Physical exam: General no apparent distress Abdomen: Diffuse erythema/petechial hemorrhage surrounding a 5-6 cm diameter around the PEG tube site/no active drainage noted/increased warmth/positive tender Cellulitis at PEG tube site Started empirically with IV vancomycin and Zosyn Blood culture ordered he is on Xarelto chronically for history of thromboembolism Concern for possible petechiae hemorrhage leading to cellulitis around the PEG tube site? Patient denies of any trauma at that area CT abdomen pelvis without contrast ordered to assess any intra-abdominal extension of infection(contrast avoided with concern of possible contrast- induced nephropathy, patient has only one kidney/follows with Dr. Gonzales, ) GI eval requested to assess the patency of PEG tube Please refer to further documentation by Ese DAVIS for discussion of other chronic issue Katlyn Wilkins MD Resuscitation Status VTE Prophylaxis Will order VTE Prophylaxis: Yes
[2017-11-19] MEDS: SODIUM CHLORIDE 0.9% 1000ML 1,000 ML IV SCH (21:57)
[2017-11-19] MEDS: SOTALOL HCL 80 MG TAB PO SCH (21:58)
[2017-11-19] MEDS: GABAPENTIN 300 MG CAP PO SCH (21:58)
[2017-11-19] MEDS: CYANOCOBALAMIN 500 MCG TAB (VIT B-12) PO SCH (21:59)
[2017-11-19] MEDS: CHOLECALCIFEROL 1000 INTER.UNIT TAB PO SCH (21:59)
[2017-11-19] MEDS: CILOSTAZOL 100 MG TAB PO SCH (22:00)
--- NOTE | 2017-11-19 22:06 | DIAGNOSTIC IMAGING REPORT ---
CT SCAN OF THE ABDOMEN AND PELVIS WITHOUT IV CONTRAST CLINICAL HISTORY: Infection. Cellulitis around the PEG tube. COMPARISON STUDY: Abdominal CT dated 09/02/2016 and 11/26/2011. PET/CT dated 06/24/2017. TECHNIQUE: CT scan of the abdomen and pelvis is performed from the lung bases to the proximal femora. Images are reviewed in the axial, sagittal, and coronal planes. IV contrast was not administered for this examination as per the referring clinician. Note that the examination was performed in significantly suboptimal fashion without oral and IV contrast. A dose lowering technique was utilized adhering to the principles of ALARA. CT DOSE: 337.49 mGy.cm FINDINGS: Lung bases: The heart is normal in size and without pericardial effusion. Calcified pleural plaques are present at the lung bases and consistent with asbestos-related pleural disease. No airspace consolidation or pleural effusion is identified. 6 mm pleural-based nodule at the left lung base image #21 is unchanged dating back to 2011 and of doubtful significance. Liver: The unenhanced liver is normal in size, contour, and attenuation. There is no intrahepatic biliary ductal dilatation. Gallbladder: Unremarkable. Spleen: Normal in size and attenuation. Pancreas: The unenhanced pancreas is moderately atrophic and grossly unremarkable. Adrenal glands: Unremarkable. Kidneys: There is asymmetric cortical atrophy of the left kidney as compared to the right. No hydronephrosis is seen. There are no renal calculi identified. There is no evidence of contour deforming renal mass lesion. Abdominal vasculature: There is advanced atherosclerotic calcification of the abdominal aorta. An infrarenal abdominal indicators measures 3.0 x 2.9 cm. Stomach and bowel: A gastrostomy tube is noted in the gastric body. No surrounding inflammatory change or fluid collection is identified. The stomach and duodenum are normal in configuration. No bowel obstruction is seen. There is advanced sigmoid diverticulosis without CT evidence of acute diverticulitis. Mild diverticular disease is seen throughout the remainder of the colon. Mild fecal retention is noted. The appendix is not identified reported surgically absent. Peritoneum: There is no intraperitoneal free air or abdominal ascites. Lymphadenopathy: None. Pelvic viscera: The bladder is normal as visualized. The prostate gland is diminutive and brachytherapy seeds are noted. There is a fat-containing left inguinal hernia. Skeletal structures: The skeletal structures are osteopenic. There is a moderate compression deformity of L4, age indeterminant but new from 09/02/2016. Mild lumbosacral spondylosis is noted. No additional destructive bony lesion is suggested. IMPRESSION: 1. Significantly suboptimal examination without oral and IV contrast. 2. There are no acute infectious or inflammatory findings in the abdomen or pelvis. 3. A gastrostomy tube is present in the body of the stomach. There is no surrounding inflammatory change or fluid collection. 4. Advanced sigmoid diverticulosis without CT evidence of acute diverticulitis. 5. There is a moderate compression deformity of L4, age indeterminant but new from 09/02/2016. No large retropulsed fragments are identified. Permeative change is suggested within the body of L4 and this is likely on a pathologic basis when correlated with the 06/24/[address] Correlation with the patient's oncologic history will be required. 6. There is a 3.0 x 2.9 cm infrarenal abdominal aortic aneurysm. 7. Additional findings as above. Electronically signed by: Michael Alfredo M.D. 11/19/2017 10:05 PM Dictated Date/Time: 11/19/2017 9:53 PM
[2017-11-19] MEDS ORDERED: NURSING VERBAL MED ORDER ONE (22:15)
[2017-11-19 22:23] VITALS: BP 170/76; PULSE 103; TEMP 39.5; O2SAT 97; BMI 26.9
[2017-11-19] MEDS: PIPERACILL/TAZOBAC IV 3.375 GM in D5W 100ML IV SCH (23:52)
[2017-11-19 23:58] VITALS: BP 96/51; PULSE 85; TEMP 37.8; O2SAT 95
[2017-11-20] VITALS (10 sets, daily range): BP systolic 90–114; BP diastolic 48–67; PULSE 58–78; TEMP 36.1–37.5; O2SAT 94–100; BMI 26.2
[2017-11-20 01:00] LABS: HEMATOCRIT 29.7 % (42-52); MEAN CORPUSCULAR HGB CONC 33.7 g/dl (32-36); MEAN PLATELET VOLUME 8.7 fL (7.4-10.4); PLATELET COUNT 137 K/uL (130-400); RED CELL DISTRIBUTION WIDTH CV 17.5 % (11.5-14.5); RED CELL DISTRIBUTION WIDTH SD 62.9 fL (36.4-46.3); WHITE BLOOD COUNT 13.59 K/uL (4.8-10.8)
[2017-11-20 01:23] LABS: BASO % 0.1 %; BASO ABS # 0.01 K/uL (0-0.2); IG# 0.03 K/uL (0.00-0.02); LYMPH % 9.1 %; LYMPH ABS # 1.24 K/uL (1.2-3.4); MONO % 8.5 %; MONO ABS # 1.16 K/uL (0.11-0.59); NEUT % 82.1 %; NEUT ABS # 11.15 K/uL (1.4-6.5)
[2017-11-20 01:25] LABS: ALBUMIN 2.6 gm/dl (3.4-5.0); CALCIUM 8.3 mg/dl (8.5-10.1); CREATININE 0.98 mg/dl (0.60-1.40); POTASSIUM 3.5 mmol/L (3.5-5.1); TOTAL PROTEIN 6.8 gm/dl (6.4-8.2)
[2017-11-20] MEDS ORDERED: SODIUM CHLORIDE 0.9% 250ML 250 ML IV ONE (02:00)
[2017-11-20] MEDS: VANCOMYCIN IV 1,250 MG in SODIUM CHLORIDE 0.9% 250ML 250 ML IV SCH ×2 (06:02→18:39)
[2017-11-20] MEDS ORDERED: TAMSULOSIN HCL 0.4 MG CAP PO SCH (08:00)
[2017-11-20] MEDS ORDERED: ASPIRIN 81 MG ECTAB PO SCH (08:00)
[2017-11-20] MEDS: PIPERACILL/TAZOBAC IV 3.375 GM in D5W 100ML IV SCH ×2 (08:18→16:13)
[2017-11-20] MEDS: FEXOFENADINE HCL 180 MG TAB PO SCH (08:29)
[2017-11-20] MEDS: ALLOPURINOL 300 MG TAB PO SCH (08:29)
[2017-11-20] MEDS: SODIUM CHLORIDE 0.9% 1000ML 1,000 ML IV SCH ×2 (08:29→20:37)
[2017-11-20] MEDS: CYANOCOBALAMIN 500 MCG TAB (VIT B-12) PO SCH ×2 (08:30→20:32)
[2017-11-20] MEDS: CHOLECALCIFEROL 1000 INTER.UNIT TAB PO SCH ×2 (08:30→20:32)
[2017-11-20] MEDS: CILOSTAZOL 100 MG TAB PO SCH (08:30)
[2017-11-20] MEDS: MULTIVITAMIN TAB PO SCH (08:30)
[2017-11-20] MEDS: GABAPENTIN 300 MG CAP PO SCH ×2 (08:32→20:31)
[2017-11-20] MEDS: AMLODIPINE BESYLATE 5 MG TAB PO SCH (08:33)
[2017-11-20] MEDS: SOTALOL HCL 80 MG TAB PO SCH ×2 (08:33→20:30)
[2017-11-20] MEDS: RIVAROXABAN 20 MG TAB PO SCH (08:34)
[2017-11-20] MEDS: ACETAMINOPHEN 500 MG TAB PO SCH (08:37)
[2017-11-20] MEDS ORDERED: NURSING DECISION MEDICATION ORDER SCH ×2 (08:45→23:15)
--- NOTE | 2017-11-20 11:33 | Pharmacy Progress Note ---
Pharmacy Abx Initial Consult Date of Service November 20, 2017. Pharmacy Dosing Scope Date of Consult: 11/19/17 Consultation requested by: DUANE Castillo Pharmacy is consulted to initiate vancomycin and Zosyn IV dosing therapy, order appropriate labs and adjust drug dose/frequency. Subjective The patient is a 72 year old male admitted on November 19, 2017 at 18:24. Objective Height (Feet): 5 Height (Inches): 9.00 Weight (Kilograms): 80.600 Vital Signs (Past 12Hrs) Vital Signs Past 12 Hours Date Time Temp Pulse Resp B/P (MAP) Pulse Ox O2 Delivery O2 Flow Rate FiO2 11/20/17 08:45 Room Air 11/20/17 07:43 36.5 58 20 98/52 (67) 100 Room Air 11/20/17 05:00 36.3 68 21 95/54 (68) 98 Room Air 11/20/17 03:15 36.7 70 20 97/60 (72) 96 Room Air 11/20/17 01:47 96/59 (71) 11/20/17 01:47 90/52 (65) 11/20/17 01:46 37.5 78 20 91/50 (64) 94 Room Air 11/20/17 00:00 Room Air 11/19/17 23:58 37.8 85 20 96/51 (66) 95 Room Air Lab Results (24Hrs) Laboratory Tests (24 Hours) Test 11/20/17 00:49 Lactic Acid Level 1.2 mmol/L (0.4-2.0) White Blood Count 13.59 K/uL (4.8-10.8) H Red Blood Count 3.03 M/uL (4.7-6.1) L Hemoglobin 10.0 g/dL (14.0-18.0) L Hematocrit 29.7 % (42-52) L Mean Corpuscular Volume 98.0 fL (80-100) Mean Corpuscular Hemoglobin 33.0 pg (25-34) Mean Corpuscular Hemoglobin Concent 33.7 g/dl (32-36) Platelet Count 137 K/uL (130-400) Mean Platelet Volume 8.7 fL (7.4-10.4) Neutrophils (%) (Auto) 82.1 % Lymphocytes (%) (Auto) 9.1 % Monocytes (%) (Auto) 8.5 % Eosinophils (%) (Auto) 0.0 % Basophils (%) (Auto) 0.1 % Neutrophils # (Auto) 11.15 K/uL (1.4-6.5) H Lymphocytes # (Auto) 1.24 K/uL (1.2-3.4) Monocytes # (Auto) 1.16 K/uL (0.11-0.59) H Eosinophils # (Auto) 0.00 K/uL (0-0.5) Basophils # (Auto) 0.01 K/uL (0-0.2) Micro Results Date/Time Source Procedure Growth Status 11/19/17 17:35 Blood Blood Culture Pending Received 11/19/17 17:04 Blood Blood Culture Pending Received 11/19/17 20:00 Drainage-Deep Abdomen, Left Upper Quadrant Gram Stain - Final Resulted 11/19/17 20:00 Drainage-Deep Abdomen, Left Upper Quadrant Wound Culture Pending Resulted Risk Factors for Resistance * Immunocompromised (chemotherapy and radiation) Assessment & Plan Assessment 72 year old male with a PMH of esophageal carcinoma and prostate CA with mets who presents with an infection around his G-tube site. He recently completed chemotherapy and radiation for esophageal carcinoma. Plan vancomycin/Zosyn for treatment of skin infection around G-tube Vancomycin IV * Loading dose: 1500 mg (18 mg/kg) * Maintenance dose: 1250 mg IV (15 mg/kg) every 12 hours (population pharmacokinetics suggest a half-life of 11.5 hours with an elimination constant of 0.06 hr-1) * Goal trough level for SSTI : ~15 mcg/mL * Trough/Random level ordered for 11/21/17 prior to 0600 dose Piperacillin/tazobactam * 4.5 g bolus administered over 30 minutes, then 3.375 g IV extended infusion every 8 hours for CrCl greater than 20 mL/min Pharmacy will continue to follow and will adjust dose/frequency as necessary. Thank you.
--- NOTE | 2017-11-20 15:55 | Gastrointestinal Consultation ---
Gastrointestinal Consultation Date of Consultation: November 20, 2017 Attending Physician: Dr. Karimi Consulting Physician: Dr. Ayala Reason for Consultation: cellulitis near PEG tube History of Present Illness Patient is a 72 year old male with head/neck cancer who has a PEG for dysphagia. Redness and tenderness began around the PEG tube sight 3 days ago and has worsened. THe PEG has been working well for nutritional needs, flushing well etc. He has had mild mucoid DC from the tube insertion site for months. He doesn't believe that there has been PEG tube feeding leaking around the site. CT on arrival with correct placement of the PEG and superficial cellulitis. Past Medical/Surgical History Past Medical History: HTN, COPD, past tobacco abuse, BPH Past Surgical History: PEG tube placement Head/neck cancer tx Family History FH: CVA (cerebrovascular accident) FATHER MOTHER FH: hypertension FATHER MOTHER Social History Smoking Status: Never Smoker Drug Use: marijuana (Former) Marital Status: Allergies Coded Allergies: Oark (Verified Allergy, Intermediate, "Tongue blisters with too many walnuts", 11/19/17) Morphine (Verified Adverse Reaction, Severe, "PASSED OUT", 11/19/17) Prednisone (Verified Adverse Reaction, Severe, LOWER EXTREMITY EDEMA, 11/19) Azithromycin (Verified Adverse Reaction, Mild, "Temp spike", 11/20/17) Statins (Verified Adverse Reaction, Unknown, CREATINKINASE, 11/20/17) Current Medications Home Meds and Scripts Medications Dose Route/Sig Max Daily Dose Days Date Category Dose Instructions Isosource 1.5 Jonn (Nutritional Supplements) 1 Liq Liq 500 Ml PEG BID 11/19/17 Reported Niacin Flush Free (Inositol Niacinate) 500 Mg Cap 2 Cap PO DAILY 11/19/17 Reported Triderm (Triamcinolone Acetonide (Topic) 0.1 % Cre 1 Appln TOP BID PRN 11/19/17 Reported Flomax (Tamsulosin Hcl) 0.4 Mg Cap 0.4 Mg PO DAILY 11/19/17 Reported Betapace (Sotalol Hcl) 80 Mg Tab 80 Mg PO BID 11/19/17 Reported Xarelto (Rivaroxaban) 20 Mg Tab 20 Mg PO DAILY 11/19/17 Reported Multivitamin (Multiple Vitamin) 1 Tab Tab 1 Tab PO DAILY 11/19/17 Reported Neurontin (Gabapentin) 300 Mg Cap 300 Mg PO BID 11/19/17 Reported Meme Allergy (Fexofenadine Hcl) 180 Mg Tab 1 Tab PO DAILY 11/19/17 Reported Vitamin B-12 (Cyanocobalamin) 1,000 Mcg Tab 1,000 Mcg PO BID 11/19/17 Reported Cleocin-T (Clindamycin Phosphate (Topical) 1 % Gel 1 Appln TOP QAM 11/19/17 Reported APPLY TOPICALLY ONCE A DAY IN THE MORNINGS TO PIMPLY AREAS. Pletal (Cilostazol) 100 Mg Tab 100 Mg PO DAILY 11/19/17 Reported PT IS ALTERNATING BETWEEN 100MG TWICE A DAY AND 100MG ONCE DAILY. Pletal (Cilostazol) 100 Mg Tab 100 Mg PO BID 11/19/17 Reported PT IS ALTERNATING BETWEEN 100MG TWICE A DAY AND 100MG ONCE DAILY. Vitamin D3 (Cholecalciferol) 1,000 Unit Tab 1 Tab PO BID 11/19/17 Reported Calcium Gluconate 500 Mg Tab 500 Mg PO BID 11/19/17 Reported Aspirin 81 Mg Tab 81 Mg PO DAILY 11/19/17 Reported Ascorbic Acid 1,000 Mg Tab 1,000 Mg PO DAILY 11/19/17 Reported Norvasc (Amlodipine Besylate) 5 Mg Tab 5 Mg PO DAILY 11/19/17 Reported Zyloprim (Allopurinol) 300 Mg Tab 300 Mg PO DAILY 11/19/17 Reported Tylenol (Acetaminophen) 500 Mg Tab 1,000 Mg PO DAILY 11/19/17 Reported Review of Systems Constitutional: No fever, No chills, No sweats, No weight loss, No weakness Eyes: No eye pain, No redness ENT: No sore throat, No trouble swallowing, No pain on swallowing Respiratory: No cough, No wheezing, No shortness of breath, No dyspnea on exertion Cardiac: No chest pain, No edema, No palpitations Abdomen: + see HPI, + pain (superficial) Neuro: No memory loss, No weakness, No numbness/tingling, No vertigo, No balance problems Psych: No depression symptoms, No anxiety, No insomnia Heme: No abnormal bleeding/bruising, No night sweats Endo: No excessive thirst, No excessive urination Skin: No rash, No itch, No new/changing skin lesions, No jaundice Physical Exam Date Time Temp Pulse Resp B/P (MAP) Pulse Ox O2 Delivery O2 Flow Rate FiO2 11/20/17 15:05 36.4 63 20 106/63 (77) 100 11/20/17 12:26 36.1 63 20 90/48 (62) 97 Room Air 11/20/17 08:45 Room Air 11/20/17 07:43 36.5 58 20 98/52 (67) 100 Room Air 11/20/17 05:00 36.3 68 21 95/54 (68) 98 Room Air 11/20/17 03:15 36.7 70 20 97/60 (72) 96 Room Air 11/20/17 01:47 96/59 (71) 11/20/17 01:47 90/52 (65) 11/20/17 01:46 37.5 78 20 91/50 (64) 94 Room Air 11/20/17 00:00 Room Air 11/19/17 23:58 37.8 85 20 96/51 (66) 95 Room Air 11/19/17 22:23 39.5 103 18 170/76 97 Room Air 11/19/17 18:25 108 18 138/77 95 Room Air 11/19/17 16:11 39.4 107 20 140/69 95 Room Air General Appearance: no apparent distress Eyes: normal inspection, EOMI Neck: supple, no adenopathy, thyroid normal Respiratory/Chest: chest non-tender, lungs clear, normal breath sounds, no accessory muscle use Cardiovascular: regular rate, rhythm, no JVD, no murmur Abdomen: normal bowel sounds, non tender, soft, no organomegaly, + pertinent finding (large area of tender, red, warm skin around the PEG site) Extremities: normal inspection, no pedal edema, normal capillary refill Neurologic/Psych: alert, normal mood/affect, oriented x 3 Skin: normal color, no jaundice, warm/dry, no rash Laboratory Results Last 24 Hours Test 11/19/17 17:04 11/20/17 00:49 White Blood Count 9.20 K/uL 13.59 K/uL Red Blood Count 3.61 M/uL 3.03 M/uL Hemoglobin 11.9 g/dL 10.0 g/dL Hematocrit 35.6 % 29.7 % Mean Corpuscular Volume 98.6 fL 98.0 fL Mean Corpuscular Hemoglobin 33.0 pg 33.0 pg Mean Corpuscular Hemoglobin Concent 33.4 g/dl 33.7 g/dl Platelet Count 151 K/uL 137 K/uL Mean Platelet Volume 8.9 fL 8.7 fL Neutrophils (%) (Auto) 82.7 % 82.1 % Lymphocytes (%) (Auto) 7.7 % 9.1 % Monocytes (%) (Auto) 9.2 % 8.5 % Eosinophils (%) (Auto) 0.0 % 0.0 % Basophils (%) (Auto) 0.1 % 0.1 % Neutrophils # (Auto) 7.60 K/uL 11.15 K/uL Lymphocytes # (Auto) 0.71 K/uL 1.24 K/uL Monocytes # (Auto) 0.85 K/uL 1.16 K/uL Eosinophils # (Auto) 0.00 K/uL 0.00 K/uL Basophils # (Auto) 0.01 K/uL 0.01 K/uL RDW Standard Deviation 63.6 fL 62.9 fL RDW Coefficient of Variation 17.7 % 17.5 % Immature Granulocyte % (Auto) 0.3 % 0.2 % Immature Granulocyte # (Auto) 0.03 K/uL 0.03 K/uL Sodium Level 134 mmol/L 135 mmol/L Potassium Level 3.9 mmol/L 3.5 mmol/L Chloride Level 102 mmol/L 101 mmol/L Carbon Dioxide Level 25 mmol/L 25 mmol/L Anion Gap 7.0 mmol/L 9.0 mmol/L Blood Urea Nitrogen 16 mg/dl 16 mg/dl Creatinine 0.81 mg/dl 0.98 mg/dl Est Creatinine Clear Calc Drug Dose 84.9 ml/min 70.2 ml/min Estimated GFR () 104.4 90.2 Estimated GFR (Non- 90.0 77.8 BUN/Creatinine Ratio 20.1 16.2 Random Glucose 109 mg/dl 123 mg/dl Lactic Acid Level 1.0 mmol/L 1.2 mmol/L Calcium Level 9.0 mg/dl 8.3 mg/dl Magnesium Level 1.9 mg/dl 1.8 mg/dl Total Bilirubin 0.7 mg/dl 0.8 mg/dl Aspartate Amino Transf (AST/SGOT) 18 U/L 21 U/L Alanine Aminotransferase (ALT/SGPT) 14 U/L 16 U/L Alkaline Phosphatase 115 U/L 110 U/L Total Protein 7.4 gm/dl 6.8 gm/dl Albumin 3.1 gm/dl 2.6 gm/dl Globulin 4.3 gm/dl 4.2 gm/dl Albumin/Globulin Ratio 0.7 0.6 Impression Patient is a 72 year old male with cellulitis surrounding the PEG tube insertion site. Plan 1. Continue use of the PEG 2. Reviewed skin care around PEG site 3. Antibiotic tx of cellulitis by primary services. 4. Would NOT remove this PEG. I performed a history and physical examination of the patient, including specifically on exam, PEG tube intact and no leakage, external bumper adjusted to 4cm. I have discussed the patient's management with . Please refer to the NAIL EXPERT's note for the documented findings and plan of care. CT scan showed PEG tube in place with no signs of berried bumper. Has mild abdominal wall skin cellulitis that looks superficial and improving. Would keep the tube in place and continue feeding and IV ABx to treat the cellulitis. Recall GI if needed.
--- NOTE | 2017-11-20 17:18 | Progress Note ---
Internal Med Progress Note Date of Service: November 20, 2017. Provider Documentation: SUBJECTIVE: Patient denies acute pain of abdomen. Patient reports problem with swallowing has been chronic. OBJECTIVE: General Appearance: no distress Head: normocephalic, atraumatic Eyes: EOMI ENT: hearing grossly normal, right neck with some swelling which is unchanged as per patient Neck: supple, no JVD, trachea midline Respiratory/Chest: lungs clear, normal breath sounds, no respiratory distress Cardiovascular: bradycardic Abdomen/GI: normal bowel sounds, soft, pertinent finding, PEG tube in place to left upper quadrant with significant surrounding erythema and warm to touch Extremities/Musculoskelatal: no edema Neurologic/Psych: alert, normal mood/affect, oriented x 3 ASSESSMENT & PLAN: Patient was admitted for sepsis and likely source is the cellulitis around the PEG tube site -empirically on Vancomycin and Zosyn -culture of PEG tube with Group A beta strep and no sensitivities to follow -Check CT ABD/pelvis did not reveal intraabdominal abscess -Gastroenterology service advises that it is okay to continue use of the PEG Nutrition through PEG tube 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 Follows with Dr. Rio St, Dr. Adiel St, Dr. Burk , Dr. Anderson -monitor the oropharynx on exam daily ATRIAL FIBRILLATION -Rhythm controlled on sotalol, continue -Anticoagulated on Xarelto, continue HYPERTENSION -BP controlled, continue amlodipine PVD -Continue Pletal DVT PROPHYLAXIS -Anticoagulated on Xarelto Vital Signs: Date Time Temp Pulse Resp B/P (MAP) Pulse Ox O2 Delivery O2 Flow Rate FiO2 11/20/17 19:16 37.0 70 18 114/67 (83) 98 Room Air 11/20/17 16:00 100 Room Air 11/20/17 15:05 36.4 63 20 106/63 (77) 100 11/20/17 12:26 36.1 63 20 90/48 (62) 97 Room Air 11/20/17 08:45 Room Air 11/20/17 07:43 36.5 58 20 98/52 (67) 100 Room Air 11/20/17 05:00 36.3 68 21 95/54 (68) 98 Room Air 11/20/17 03:15 36.7 70 20 97/60 (72) 96 Room Air 11/20/17 01:47 96/59 (71) 11/20/17 01:47 90/52 (65) 11/20/17 01:46 37.5 78 20 91/50 (64) 94 Room Air 11/20/17 00:00 Room Air 11/19/17 23:58 37.8 85 20 96/51 (66) 95 Room Air 11/19/17 22:23 39.5 103 18 170/76 97 Room Air Lab Results: Results Past 24 Hours Test 11/20/17 00:49 Range/Units White Blood Count 13.59 4.8-10.8 K/uL Red Blood Count 3.03 4.7-6.1 M/uL Hemoglobin 10.0 14.0-18.0 g/dL Hematocrit 29.7 42-52 % Mean Corpuscular Volume 98.0 80-100 fL Mean Corpuscular Hemoglobin 33.0 25-34 pg Mean Corpuscular Hemoglobin Concent 33.7 32-36 g/dl Platelet Count 137 130-400 K/uL Mean Platelet Volume 8.7 7.4-10.4 fL Neutrophils (%) (Auto) 82.1 % Lymphocytes (%) (Auto) 9.1 % Monocytes (%) (Auto) 8.5 % Eosinophils (%) (Auto) 0.0 % Basophils (%) (Auto) 0.1 % Neutrophils # (Auto) 11.15 1.4-6.5 K/uL Lymphocytes # (Auto) 1.24 1.2-3.4 K/uL Monocytes # (Auto) 1.16 0.11-0.59 K/uL Eosinophils # (Auto) 0.00 0-0.5 K/uL Basophils # (Auto) 0.01 0-0.2 K/uL RDW Standard Deviation 62.9 36.4-46.3 fL RDW Coefficient of Variation 17.5 11.5-14.5 % Immature Granulocyte % (Auto) 0.2 % Immature Granulocyte # (Auto) 0.03 0.00-0.02 K/uL Sodium Level 135 136-145 mmol/L Potassium Level 3.5 3.5-5.1 mmol/L Chloride Level 101 98-107 mmol/L Carbon Dioxide Level 25 21-32 mmol/L Anion Gap 9.0 3-11 mmol/L Blood Urea Nitrogen 16 7-18 mg/dl Creatinine 0.98 0.60-1.40 mg/dl Est Creatinine Clear Calc Drug Dose 70.2 ml/min Estimated GFR () 90.2 Estimated GFR (Non- 77.8 BUN/Creatinine Ratio 16.2 10-20 Random Glucose 123 70-99 mg/dl Lactic Acid Level 1.2 0.4-2.0 mmol/L Calcium Level 8.3 8.5-10.1 mg/dl Magnesium Level 1.8 1.8-2.4 mg/dl Total Bilirubin 0.8 0.2-1 mg/dl Aspartate Amino Transf (AST/SGOT) 21 15-37 U/L Alanine Aminotransferase (ALT/SGPT) 16 12-78 U/L Alkaline Phosphatase 110 45-117 U/L Total Protein 6.8 6.4-8.2 gm/dl Albumin 2.6 3.4-5.0 gm/dl Globulin 4.2 2.5-4.0 gm/dl Albumin/Globulin Ratio 0.6 0.9-2 Microbiology Results 11/19/17 Gram Stain - Final, Resulted 11/19/17 Wound Culture - Preliminary, Resulted Group A Beta Strep
[2017-11-20] MEDS ORDERED: BOOST PLUS VANILLA PO SCH (20:00)
[2017-11-20] MEDS: IMPACT LIQ 1000 ML BAG PEG SCH (20:09)
[2017-11-20] MEDS: TAMSULOSIN HCL 0.4 MG CAP PO SCH (20:33)
[2017-11-20] MEDS: ASPIRIN 81 MG ECTAB PO SCH (20:33)
[2017-11-21] MEDS: PIPERACILL/TAZOBAC IV 3.375 GM in D5W 100ML IV SCH ×3 (00:29→15:51)
[2017-11-21 03:15] VITALS: BP 113/55; PULSE 68; TEMP 36.6; O2SAT 98
[2017-11-21] MEDS ORDERED: VANCOMYCIN TROUGH ONE (05:30)
[2017-11-21] MEDS: VANCOMYCIN IV 1,250 MG in SODIUM CHLORIDE 0.9% 250ML 250 ML IV SCH ×2 (06:01→17:48)
[2017-11-21 06:09] LABS: HEMATOCRIT 27.6 % (42-52); HEMOGLOBIN 9.2 g/dL (14.0-18.0); MEAN CELL VOLUME 98.6 fL (80-100); MEAN CORPUSCULAR HEMOGLOBIN 32.9 pg (25-34); MEAN CORPUSCULAR HGB CONC 33.3 g/dl (32-36); PLATELET COUNT 136 K/uL (130-400); RED CELL DISTRIBUTION WIDTH CV 17.3 % (11.5-14.5); RED CELL DISTRIBUTION WIDTH SD 62.8 fL (36.4-46.3); WHITE BLOOD COUNT 7.79 K/uL (4.8-10.8)
[2017-11-21 06:28] VITALS: BMI 27.3
[2017-11-21 06:42] LABS: CREATININE 0.75 mg/dl (0.60-1.40)
[2017-11-21 06:48] LABS: BASO % 0.1 %; BASO ABS # 0.01 K/uL (0-0.2); EOS % 1.3 %; IG# 0.02 K/uL (0.00-0.02); LYMPH % 8.5 %; LYMPH ABS # 0.66 K/uL (1.2-3.4); MONO % 13.7 %; MONO ABS # 1.07 K/uL (0.11-0.59); NEUT % 76.1 %; NEUT ABS # 5.93 K/uL (1.4-6.5)
[2017-11-21 08:18] VITALS: BP 115/65; PULSE 70; TEMP 36.8; O2SAT 98
[2017-11-21] MEDS: ALLOPURINOL 300 MG TAB PO SCH (08:20)
[2017-11-21] MEDS: CHOLECALCIFEROL 1000 INTER.UNIT TAB PO SCH ×2 (08:20→20:07)
[2017-11-21] MEDS: GABAPENTIN 300 MG CAP PO SCH ×2 (08:20→20:07)
[2017-11-21] MEDS: CILOSTAZOL 100 MG TAB PO SCH ×2 (08:20→20:07)
[2017-11-21] MEDS: FEXOFENADINE HCL 180 MG TAB PO SCH (08:21)
[2017-11-21] MEDS: MULTIVITAMIN TAB PO SCH (08:21)
[2017-11-21] MEDS: SOTALOL HCL 80 MG TAB PO SCH ×2 (08:21→20:09)
[2017-11-21] MEDS: RIVAROXABAN 20 MG TAB PO SCH (08:22)
[2017-11-21] MEDS: CYANOCOBALAMIN 500 MCG TAB (VIT B-12) PO SCH ×2 (08:22→20:08)
[2017-11-21] MEDS: AMLODIPINE BESYLATE 5 MG TAB PO SCH (08:23)
[2017-11-21] MEDS: ACETAMINOPHEN 500 MG TAB PO SCH (08:28)
[2017-11-21] MEDS: SODIUM CHLORIDE 0.9% 1000ML 1,000 ML IV SCH ×2 (08:32→20:10)
[2017-11-21 08:42] VITALS: BP 122/72; PULSE 71; TEMP 37; O2SAT 97
[2017-11-21] MEDS: IMPACT LIQ 1000 ML BAG PEG SCH ×2 (09:02→17:01)
--- NOTE | 2017-11-21 09:03 | Pharmacy Progress Note ---
Pharmacy Abx Dose Short Note Date of Service November 21, 2017. Assessment & Plan Assessment 72 year old male receiving vancomycin for treatment of cellulitis near PEG site Day # 3 of antimicrobial therapy. Plan Vancomycin * Trough level of 15.9 mcg/mL is therapeutic * Continue dose of 1250 mg IV every 12 hours * Goal trough level for cellulitis ~15 mcg/mL * Order trough in 2-3 days or with changing renal function Pharmacy will continue to follow and will adjust dose/frequency as necessary. Thank you.
[2017-11-21 11:27] VITALS: BP 120/66; PULSE 76; TEMP 37; O2SAT 97
[2017-11-21] MEDS: BOOST PLUS VANILLA PO SCH ×2 (12:47→15:51)
[2017-11-21 15:08] VITALS: BP 123/69; PULSE 74; TEMP 36.9; O2SAT 100
[2017-11-21] MEDS ORDERED: CALAMINE/PRAMOXINE LOTION 177 APPLN/177 ML BTL EXT PRN (16:15)
[2017-11-21] MEDS ORDERED: NURSING VERBAL MED ORDER ONE (16:15)
[2017-11-21 18:38] VITALS: BP 128/72; PULSE 76; TEMP 36.9; O2SAT 98
--- NOTE | 2017-11-21 18:45 | Progress Note ---
Internal Med Progress Note Date of Service: November 21, 2017. Provider Documentation: SUBJECTIVE: Patient denies acute pain of abdomen but that abdomen erythema skin is itchy. Patient reports that neck/tongue swelling is unchanged. discussed antibiotic plan with patient and suggested that given the extent of the cellulitis that he may need to remain in the hospital for some time on IV antibiotics. patient expressed that he has ophthalmology clinic this coming Thursday11/23/17 and he expresses that he hopes he does not need to remain in the hospital for long. he agrees with plan to remain on IV antibiotics for now. OBJECTIVE: General Appearance: no distress Head: normocephalic, atraumatic Eyes: EOMI ENT: hearing normal, right neck/tongue with some swelling which is unchanged as per patient Neck: supple, no JVD, trachea midline Respiratory/Chest: lungs clear, normal breath sounds, no respiratory distress Cardiovascular: regular rate Abdomen/GI: normal bowel sounds, soft, pertinent finding, PEG tube in place to left upper quadrant with significant surrounding erythema and warm to touch Extremities/Musculoskelatal: no edema Neurologic/Psych: alert, normal mood/affect, oriented x 3 ASSESSMENT & PLAN: Patient was admitted for sepsis and likely source is the cellulitis around the PEG tube site -empirically on Vancomycin and Zosyn -culture of PEG tube with Group A beta strep and no sensitivities to follow -CT ABD/pelvis did not reveal intraabdominal abscess -Gastroenterology service advises that it is okay to continue use of the PEG -Blood cultures from 11/19/17 with no growth to date. Vancomycin stopped on . Continue with Zosyn. 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 Follows with Dr. Rio St, Dr. Adiel St, Dr. Burk , Dr. Anderson -monitor the oropharynx on exam daily ATRIAL FIBRILLATION -Rhythm controlled on sotalol, continue -Anticoagulated on Xarelto, continue HYPERTENSION -BP controlled, continue amlodipine PVD -Continue Pletal DVT PROPHYLAXIS -Anticoagulated on Xarelto Vital Signs: Date Time Temp Pulse Resp B/P (MAP) Pulse Ox O2 Delivery O2 Flow Rate FiO2 11/21/17 18:38 36.9 76 18 128/72 (90) 98 11/21/17 16:00 Room Air 11/21/17 15:08 36.9 74 18 123/69 (87) 100 11/21/17 11:27 37.0 76 18 120/66 (84) 97 Room Air 11/21/17 08:42 37.0 71 18 122/72 (89) 97 11/21/17 08:18 36.8 70 18 115/65 (82) 98 Room Air 11/21/17 08:00 Room Air 11/21/17 03:15 36.6 68 18 113/55 (74) 98 Room Air 11/21/17 00:00 Room Air 11/20/17 23:22 36.8 67 20 111/65 (80) 98 Room Air 11/20/17 19:16 37.0 70 18 114/67 (83) 98 Room Air Lab Results: Results Past 24 Hours Test 11/21/17 05:34 Range/Units White Blood Count 7.79 4.8-10.8 K/uL Red Blood Count 2.80 4.7-6.1 M/uL Hemoglobin 9.2 14.0-18.0 g/dL Hematocrit 27.6 42-52 % Mean Corpuscular Volume 98.6 80-100 fL Mean Corpuscular Hemoglobin 32.9 25-34 pg Mean Corpuscular Hemoglobin Concent 33.3 32-36 g/dl Platelet Count 136 130-400 K/uL Mean Platelet Volume 9.0 7.4-10.4 fL Neutrophils (%) (Auto) 76.1 % Lymphocytes (%) (Auto) 8.5 % Monocytes (%) (Auto) 13.7 % Eosinophils (%) (Auto) 1.3 % Basophils (%) (Auto) 0.1 % Neutrophils # (Auto) 5.93 1.4-6.5 K/uL Lymphocytes # (Auto) 0.66 1.2-3.4 K/uL Monocytes # (Auto) 1.07 0.11-0.59 K/uL Eosinophils # (Auto) 0.10 0-0.5 K/uL Basophils # (Auto) 0.01 0-0.2 K/uL RDW Standard Deviation 62.8 36.4-46.3 fL RDW Coefficient of Variation 17.3 11.5-14.5 % Immature Granulocyte % (Auto) 0.3 % Immature Granulocyte # (Auto) 0.02 0.00-0.02 K/uL Toxic Vacuolation 1+ Creatinine 0.75 0.60-1.40 mg/dl Est Creatinine Clear Calc Drug Dose 91.7 ml/min Estimated GFR () 107.7 Estimated GFR (Non- 92.9 Vancomycin Level Trough 15.9 SEE COMMENT mcg/ml
[2017-11-21] MEDS: TAMSULOSIN HCL 0.4 MG CAP PO SCH (20:09)
[2017-11-21] MEDS: ASPIRIN 81 MG ECTAB PO SCH (20:10)
[2017-11-22 00:02] VITALS: BP 104/63; PULSE 80; TEMP 36.8; O2SAT 97
[2017-11-22] MEDS: PIPERACILL/TAZOBAC IV 3.375 GM in D5W 100ML IV SCH ×2 (00:03→08:28)
[2017-11-22 04:50] VITALS: BP 111/63; PULSE 77; TEMP 36.5; O2SAT 97
[2017-11-22 06:27] LABS: CREATININE 0.69 mg/dl (0.60-1.40)
[2017-11-22 07:12] VITALS: Ht 175.3 cm; Wt 83.2 kg
--- NOTE | 2017-11-22 07:35 | Progress Note ---
Progress Note Date of Service November 22, 2017. Progress Note ID Consult Dictated #[id number] A/P: 1. Abd wall cellulitis _GAS -Can change to po keflex 500mg po bid x 14 days -No contraindication to d/c from ID standpoint, thank you
[2017-11-22 08:10] LABS: BASO % 0.4 %; BASO ABS # 0.03 K/uL (0-0.2); EOS % 3.5 %; EOS ABS # 0.25 K/uL (0-0.5); HEMATOCRIT 29.7 % (42-52); IG# 0.02 K/uL (0.00-0.02); LYMPH % 8.7 %; LYMPH ABS # 0.63 K/uL (1.2-3.4); NEUT % 76.1 %; NEUT ABS # 5.51 K/uL (1.4-6.5); PLATELET COUNT 162 K/uL (130-400); RED CELL DISTRIBUTION WIDTH CV 16.9 % (11.5-14.5); RED CELL DISTRIBUTION WIDTH SD 61.1 fL (36.4-46.3); WHITE BLOOD COUNT 7.24 K/uL (4.8-10.8)
[2017-11-22 08:14] LABS: MEAN CORPUSCULAR HGB CONC 33.7 g/dl (32-36)
[2017-11-22] MEDS: CHOLECALCIFEROL 1000 INTER.UNIT TAB PO SCH (08:19)
[2017-11-22] MEDS: GABAPENTIN 300 MG CAP PO SCH (08:19)
[2017-11-22] MEDS: MULTIVITAMIN TAB PO SCH (08:19)
[2017-11-22] MEDS: ALLOPURINOL 300 MG TAB PO SCH (08:19)
[2017-11-22] MEDS: CILOSTAZOL 100 MG TAB PO SCH (08:20)
[2017-11-22] MEDS: SOTALOL HCL 80 MG TAB PO SCH (08:20)
[2017-11-22] MEDS: RIVAROXABAN 20 MG TAB PO SCH (08:21)
[2017-11-22] MEDS: CYANOCOBALAMIN 500 MCG TAB (VIT B-12) PO SCH (08:21)
[2017-11-22] MEDS: FEXOFENADINE HCL 180 MG TAB PO SCH (08:21)
[2017-11-22] MEDS: AMLODIPINE BESYLATE 5 MG TAB PO SCH (08:22)
[2017-11-22 08:24] VITALS: BP 129/72; PULSE 81; TEMP 36.7; O2SAT 97
[2017-11-22] MEDS: ACETAMINOPHEN 500 MG TAB PO SCH (08:29)
[2017-11-22] MEDS: IMPACT LIQ 1000 ML BAG PEG SCH (09:18)
[2017-11-22] MEDS: SODIUM CHLORIDE 0.9% 1000ML 1,000 ML IV SCH (09:18)
--- NOTE | 2017-11-22 10:09 | INFECT. DISEASE CONSULTATION ---
DATE OF CONSULTATION: 11/22/2017 HISTORY OF PRESENT ILLNESS: This is a 72-year-old gentleman who was admitted to the hospital with fever of 103 degrees. He does have a history of head and neck cancer with metastatic disease to the cervical lymph nodes and prostate cancer with metastatic disease to the spine. He is in between chemo and radiation and states that he does not have a PET scan scheduled. He is unable to chew secondary to mucositis on the right side of his mouth, but states he is able to swallow pills. He does have a PEG tube and was found to have a PEG tube cellulitis. A wound culture was obtained and is growing group A strep. His blood cultures have been negative. Since admission to the hospital, he has been afebrile and is feeling significantly better. He was placed empirically on vancomycin and Zosyn and he remains on Zosyn. His vancomycin has been discontinued secondary to him having only one kidney. He does not have a leukocytosis. UA was negative. A CAT scan of the abdomen and pelvis did show evidence of cellulitis at the PEG site, but no abscess was formed. Overall, he states he is feeling better. He is asking to be discharged from the hospital on oral antibiotics. His remaining review of systems is unremarkable. PAST MEDICAL HISTORY: Significant for aortic aneurysm, AFib, hypertension, prostate cancer, head and neck cancer, peripheral vascular disease, renal atrophy with only one functioning kidney. PAST SURGICAL HISTORY: Significant for carotid endarterectomy, appendectomy, tonsillectomy, adenoidectomy. FAMILY HISTORY: Noncontributory. SOCIAL HISTORY: Negative for tobacco use. He has a history of alcohol use and marijuana use. ALLERGIES: INCLUDE AZITHROMYCIN, STATINS, MORPHINE, AND PREDNISONE. MEDICATIONS: Tube feeds, aspirin, Flomax, Tylenol, allopurinol, Norvasc, Pletal, Meme, multivitamins, Xarelto, Zosyn, vitamin D, vitamin B, Neurontin, sotalol, Zofran and Tylenol. PHYSICAL EXAMINATION: VITAL SIGNS: He is afebrile, pulse 77, respiratory rate , blood pressure 111/63, oxygen saturation is 97% on room air. GENERAL: He is awake, alert and oriented x3. He is in no acute distress. HEENT: Mucous membranes are dry. Tongue is swollen on the right side. I do not see any oral ulcerations. HEART: Regular. LUNGS: Clear. ABDOMEN: Soft, nontender, nondistended. EXTREMITIES: Examination of the area of cellulitis reveals significant improvement with decreased from the line that was previously drawn. There is no warmth, tenderness or drainage to the area. There is no lower extremity edema. LABORATORY STUDIES: CBC on the , white blood cell count 7.7, hemoglobin 9.2, platelets 136. Chemistry panel: Sodium 135, potassium 3.5, chloride 101, bicarb 25, BUN 16, creatinine 0.8, glucose 123. UA is negative in the ER. His most recent vancomycin trough yesterday was 15.9. Blood cultures from the are no growth to date. A wound culture from the is growing group A strep with no final sensitivities. Chest x-ray in the ER showed pleural plaques which is chronic and no evidence of consolidation. CT of the abdomen and pelvis again did not show any evidence for abscess. ASSESSMENT AND PLAN: Abdominal wall cellulitis with group A strep. He can be transitioned to oral antibiotics. I would recommend Keflex 500 mg twice daily for duration of 14 days. Thank you for this consultation. I do not see any contraindication to discharge.
--- NOTE | 2017-11-22 10:42 | Progress Note ---
Internal Med Progress Note Date of Service: November 22, 2017. Provider Documentation: SUBJECTIVE: Patient denies acute pain of abdomen. Reports more resolution of the abdominal erythema area. Less warmth there. Patient reports that he can take pills okay despite chronic tongue swelling and needing nutrition via PEG tube. He was seen by infectious disease doctor who advised changing antibiotics from Zosyn to oral antibiotic for discharge. Patient agrees to the plan and believes he can self-manage at home with the medication and follow up clinical appointments OBJECTIVE: General Appearance: no distress Head: normocephalic, atraumatic Eyes: EOMI ENT: hearing normal, right neck/tongue with some swelling which is unchanged / chronic Neck: supple, no JVD, trachea midline Respiratory/Chest: lungs clear, normal breath sounds, no respiratory distress Cardiovascular: regular rate Abdomen/GI: normal bowel sounds, soft, pertinent finding, PEG tube in place to left upper quadrant, more resolution of the abdominal erythema area and the area of redness is receding from the marker that was drawn around all 4 quadrants of the abdomen. Still has erythema in all 4 quadrants. Less warmth there Extremities/Musculoskelatal: no edema Neurologic/Psych: alert, normal mood/affect, oriented x 3 ASSESSMENT & PLAN: Hospital Course and Discharge Plans Patient was admitted for sepsis and likely source is the cellulitis around the PEG tube site -empirically on Vancomycin and Zosyn on admission -CT ABD/pelvis did not reveal intraabdominal abscess -culture of PEG tube with Group A beta strep and no sensitivities to follow -Gastroenterology service advises that it is okay to continue use of the PEG -Blood cultures from 11/19/17 with no growth to date. Vancomycin stopped on . Zosyn was continued up to 11/22/17. 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 Follows with Dr. Rio St, Dr. Adiel St, Dr. Burk , Dr. Anderson -The mucositis / right sided swelling of tongue and neck has not changed since hospital admission and without pain. Patient reports that this situation has been chronic. These findings are likely due to side effects from chemo therapy and radiation. Advise that patient continue follow up with his cancer doctors and that he has follow up appointment on 12/01/2017 11:[address] MD Hematology/Oncology [facility] ATRIAL FIBRILLATION -Rhythm controlled on sotalol, continue -Anticoagulated on Xarelto, continue HYPERTENSION -BP controlled, continue amlodipine PVD -Continue Pletal (Cilostazol) Primary Discharge Diagnosis: abdomen wall cellulitis secondary to Group A beta strep ((infection around PEG site tube of the skin) Secondary Diagnosis Mucositis secondary to cancer treatments Enteral Nutrition through PEG tube Anticoagulated on Xarelto Discharge Instructions -Infectious disease consult requested for antibiotic regimen abdomen wall cellulitis (infection around PEG site tube of the skin) secondary to Group A beta strep and recommended to change antibiotics to PO keflex 500mg po bid x 14 days for hospital discharge -Patient can use Aquaphor on the skin (patient has supply) and should avoid topical steroids Follow up with 12/01/2017 11:[address] MD Hematology/Oncology [facility] 12/04/2017 11:00 AM Isaac Parekh DO General Internal Medicine [facility] (Hospital Doctor has called [facility] appointment line [phone] for messaging the primary care clinic to try to schedule earlier appointment than this date) 12/15/2017 8:20 AM Luis Enrique Mendes DO Gastroenterology, [facility] Vital Signs: Date Time Temp Pulse Resp B/P (MAP) Pulse Ox O2 Delivery O2 Flow Rate FiO2 11/22/17 08:24 36.7 81 18 129/72 (91) 97 11/22/17 08:00 Room Air 11/22/17 04:50 36.5 77 20 111/63 (79) 97 Room Air 11/22/17 00:20 Room Air 11/22/17 00:02 36.8 80 19 104/63 (77) 97 Room Air 11/21/17 20:00 Room Air 11/21/17 18:38 36.9 76 18 128/72 (90) 98 11/21/17 16:00 Room Air 11/21/17 15:08 36.9 74 18 123/69 (87) 100 Lab Results: Results Past 24 Hours Test 11/22/17 05:28 11/22/17 07:45 Range/Units Creatinine 0.69 0.60-1.40 mg/dl Est Creatinine Clear Calc Drug Dose 99.7 ml/min Estimated GFR () 111.5 Estimated GFR (Non- 96.2 White Blood Count 7.24 4.8-10.8 K/uL Red Blood Count 3.03 4.7-6.1 M/uL Hemoglobin 10.0 14.0-18.0 g/dL Hematocrit 29.7 42-52 % Mean Corpuscular Volume 98.0 80-100 fL Mean Corpuscular Hemoglobin 33.0 25-34 pg Mean Corpuscular Hemoglobin Concent 33.7 32-36 g/dl Platelet Count 162 130-400 K/uL Mean Platelet Volume 9.0 7.4-10.4 fL Neutrophils (%) (Auto) 76.1 % Lymphocytes (%) (Auto) 8.7 % Monocytes (%) (Auto) 11.0 % Eosinophils (%) (Auto) 3.5 % Basophils (%) (Auto) 0.4 % Neutrophils # (Auto) 5.51 1.4-6.5 K/uL Lymphocytes # (Auto) 0.63 1.2-3.4 K/uL Monocytes # (Auto) 0.80 0.11-0.59 K/uL Eosinophils # (Auto) 0.25 0-0.5 K/uL Basophils # (Auto) 0.03 0-0.2 K/uL RDW Standard Deviation 61.1 36.4-46.3 fL RDW Coefficient of Variation 16.9 11.5-14.5 % Immature Granulocyte % (Auto) 0.3 % Immature Granulocyte # (Auto) 0.02 0.00-0.02 K/uL Erythrocyte Sedimentation Rate 71 0-14 mm/hr C-Reactive Protein 4.78 0-0.29 mg/dl Procalcitonin 3.86 0-0.5 ng/ml
[2017-11-22] MEDS ORDERED: KFL500 PO (11:31)
[2017-11-22] MEDS ORDERED: [UNRECOGNIZED DRUG - CODE] EXT (11:31)
[2017-11-22] MEDS: BOOST PLUS VANILLA PO SCH (12:21)
--- NOTE | 2017-11-22 12:23 | Discharge Instructions ---
Discharge Instructions Date of Service November 22, 2017. Admission Reason for Admission: Cellulitis Discharge Discharge Diagnosis / Problem: abdomen wall cellulitis Discharge Goals Goal(s): Improve disease control Activity Recommendations Activity Limitations: per Instructions/Follow-up section Shower/Bathe: no limitations . Instructions / Follow-Up Instructions / Follow-Up Hospital Course and Discharge Plans Patient was admitted for sepsis and likely source is the cellulitis around the PEG tube site -empirically on Vancomycin and Zosyn on admission -CT ABD/pelvis did not reveal intraabdominal abscess -culture of PEG tube with Group A beta strep and no sensitivities to follow -Gastroenterology service advises that it is okay to continue use of the PEG -Blood cultures from 11/19/17 with no growth to date. Vancomycin stopped on . Zosyn was continued up to 11/22/17. 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 Follows with Dr. Rio St, Dr. Adiel St, Dr. Burk , Dr. Anderson -The mucositis / right sided swelling of tongue and neck has not changed since hospital admission and without pain. Patient reports that this situation has been chronic. These findings are likely due to side effects from chemo therapy and radiation. Advise that patient continue follow up with his cancer doctors and that he has follow up appointment on 12/01/2017 11:[address] MD Hematology/Oncology [facility] ATRIAL FIBRILLATION -Rhythm controlled on sotalol, continue -Anticoagulated on Xarelto, continue HYPERTENSION -BP controlled, continue amlodipine PVD -Continue Pletal (Cilostazol) Primary Discharge Diagnosis: abdomen wall cellulitis secondary to Group A beta strep ((infection around PEG site tube of the skin) Secondary Diagnosis Mucositis secondary to cancer treatments Enteral Nutrition through PEG tube Anticoagulated on Xarelto Discharge Instructions -Infectious disease consult requested for antibiotic regimen abdomen wall cellulitis (infection around PEG site tube of the skin) secondary to Group A beta strep and recommended to change antibiotics to PO keflex 500mg po bid x 14 days for hospital discharge -Patient can use Aquaphor on the skin (patient has supply) and should avoid topical steroids Follow up with 12/01/2017 11:[address] MD Hematology/Oncology [facility] 12/04/2017 11:00 AM Isaac Parekh DO General Internal Medicine [facility] (Hospital Doctor has called [facility] appointment line [phone] for messaging the primary care clinic to try to schedule earlier appointment than this date) 12/15/2017 8:20 AM Luis Enrique Mendes DO Gastroenterology, [facility] Current Hospital Diet Patient's current hospital diet: Full Liquid Diet Discharge Diet Recommended Diet: Full Liquid Diet, N/A (enteral feeding through PEG) Pending Studies Studies pending at discharge: no Laboratory Results 11/22/17 07:45 Red Blood Count 3.03, Mean Corpuscular Volume 98.0, Mean Corpuscular Hemoglobin 33.0, Mean Corpuscular Hemoglobin Concent 33.7, Mean Platelet Volume 9.0, Neutrophils (%) (Auto) 76.1, Lymphocytes (%) (Auto) 8.7, Monocytes (%) (Auto) 11.0, Eosinophils (%) (Auto) 3.5, Basophils (%) (Auto) 0.4, Neutrophils # (Auto ) 5.51, Lymphocytes # (Auto) 0.63, Monocytes # (Auto) 0.80, Eosinophils # (Auto ) 0.25, Basophils # (Auto) 0.03 11/20/17 00:49 11/22/17 05:28 Test 11/19/17 00:00 11/20/17 00:49 11/21/17 05:34 11/22/17 05:28 Urine Color YELLOW Urine Appearance CLEAR (CLEAR) Urine pH 7.5 (4.5-7.5) Urine Specific Erlanger 1.015 (1.000-1.030) Urine Protein NEG (NEG) Urine Glucose (UA) NEG (NEG) Urine Ketones NEG (NEG) Urine Occult Blood NEG (NEG) Urine Nitrite NEG (NEG) Urine Bilirubin NEG (NEG) Urine Urobilinogen NEG (NEG) Urine Leukocyte Esterase NEG (NEG) Urine WBC (Auto) 0 /hpf (0-5) Urine RBC (Auto) 0-4 /hpf (0-4) Urine Hyaline Casts (Auto) 0 /lpf (0-5) Urine Epithelial Cells (Auto) 0-5 /lpf (0-5) Urine Bacteria (Auto) NEG (NEG) Anion Gap 9.0 mmol/L (3-11) BUN/Creatinine Ratio 16.2 (10-20) Lactic Acid Level 1.2 mmol/L (0.4-2.0) Calcium Level 8.3 mg/dl (8.5-10.1) Magnesium Level 1.8 mg/dl (1.8-2.4) Total Bilirubin 0.8 mg/dl (0.2-1) Aspartate Amino Transf (AST/SGOT) 21 U/L (15-37) Alanine Aminotransferase (ALT/SGPT) 16 U/L (12-78) Alkaline Phosphatase 110 U/L (45-117) Total Protein 6.8 gm/dl (6.4-8.2) Albumin 2.6 gm/dl (3.4-5.0) Globulin 4.2 gm/dl (2.5-4.0) Albumin/Globulin Ratio 0.6 (0.9-2) Toxic Vacuolation 1+ Vancomycin Level Trough 15.9 mcg/ml (SEE COMMENT) Est Creatinine Clear Calc Drug Dose 99.7 ml/min Estimated GFR () 111.5 Estimated GFR (Non- 96.2 Test 11/22/17 07:45 White Blood Count 7.24 K/uL (4.8-10.8) Red Blood Count 3.03 M/uL (4.7-6.1) Hemoglobin 10.0 g/dL (14.0-18.0) Hematocrit 29.7 % (42-52) Mean Corpuscular Volume 98.0 fL (80-100) Mean Corpuscular Hemoglobin 33.0 pg (25-34) Mean Corpuscular Hemoglobin Concent 33.7 g/dl (32-36) Platelet Count 162 K/uL (130-400) Mean Platelet Volume 9.0 fL (7.4-10.4) Neutrophils (%) (Auto) 76.1 % Lymphocytes (%) (Auto) 8.7 % Monocytes (%) (Auto) 11.0 % Eosinophils (%) (Auto) 3.5 % Basophils (%) (Auto) 0.4 % Neutrophils # (Auto) 5.51 K/uL (1.4-6.5) Lymphocytes # (Auto) 0.63 K/uL (1.2-3.4) Monocytes # (Auto) 0.80 K/uL (0.11-0.59) Eosinophils # (Auto) 0.25 K/uL (0-0.5) Basophils # (Auto) 0.03 K/uL (0-0.2) RDW Standard Deviation 61.1 fL (36.4-46.3) RDW Coefficient of Variation 16.9 % (11.5-14.5) Immature Granulocyte % (Auto) 0.3 % Immature Granulocyte # (Auto) 0.02 K/uL (0.00-0.02) Erythrocyte Sedimentation Rate 71 mm/hr (0-14) C-Reactive Protein 4.78 mg/dl (0-0.29) Procalcitonin 3.86 ng/ml (0-0.5) Date/Time Source Procedure Growth Status 11/19/17 17:35 Blood Blood Culture - Preliminary NO GROWTH TO DATE. Resulted 11/19/17 20:00 Drainage-Deep Abdomen, Left Upper Quadrant Gram Stain - Final Complete 11/19/17 20:00 Wound Culture - Final Group A Beta Strep Complete Medical Emergencies . Who to Call and When: Medical Emergencies: If at any time you feel your situation is an emergency, please call 911 immediately. . Non-Emergent Contact Non-Emergency issues call your: Primary Care Provider, Oncologist Call Non-Emergent contact if: you have any medication questions . . "Provider Documentation" section prepared by Joce Karimi. .
--- NOTE | 2017-11-22 12:23 | Discharge Summary ---
Discharge Summary Date of Service November 22, 2017. Discharge Summary Admission Date: November 19, 2017 at 18:24 Discharge Date: November 22, 2017 Discharge Disposition: Home Principal Diagnosis: abdomen wall cellulitis secondary to Group A beta strep ((infection around PEG site tube of the skin) Secondary Diagnoses/Problems: Mucositis secondary to cancer treatments Enteral Nutrition through PEG tube Anticoagulated on Xarelto Medication Reconciliation New Medications: Cephalexin Monohydrate (Cephalexin) 500 Mg Cap 500 MG PO BID for 14 Days, #28 CAP Continued Medications: Acetaminophen (Tylenol) 500 Mg Tab 1000 MG PO DAILY Allopurinol (Zyloprim) 300 Mg Tab 300 MG PO DAILY Amlodipine (Norvasc) 5 Mg Tab 5 MG PO DAILY Ascorbic Acid (Ascorbic Acid) 1,000 Mg Tab 1000 MG PO DAILY Aspirin (Aspirin) 81 Mg Tab 81 MG PO DAILY Calcium Gluconate (Calcium Gluconate) 500 Mg Tab 500 MG PO BID Cholecalciferol (Vitamin D3) 1,000 Unit Tab 1 TAB PO BID Cilostazol (Pletal) 100 Mg Tab 100 MG PO BID PT IS ALTERNATING BETWEEN 100MG TWICE A DAY AND 100MG ONCE DAILY. Cilostazol (Pletal) 100 Mg Tab 100 MG PO DAILY PT IS ALTERNATING BETWEEN 100MG TWICE A DAY AND 100MG ONCE DAILY. Clindamycin Phosphate (Topical (Cleocin-T) 1 % Gel 1 APPLN TOP QAM APPLY TOPICALLY ONCE A DAY IN THE MORNINGS TO PIMPLY AREAS. Cyanocobalamin (Vitamin B-12) 1,000 Mcg Tab 1000 MCG PO BID Fexofenadine Hcl (Meme Allergy) 180 Mg Tab 1 TAB PO DAILY Gabapentin (Neurontin) 300 Mg Cap 300 MG PO BID Inositol Niacinate (Niacin Flush Free) 500 Mg Cap 2 CAP PO DAILY Multiple Vitamin (Multivitamin) 1 Tab Tab 1 TAB PO DAILY Nutritional Supplements (Isosource 1.5 Jonn) 1 Liq Liq 500 ML PEG BID Rivaroxaban (Xarelto) 20 Mg Tab 20 MG PO DAILY Sotalol Hcl (Betapace) 80 Mg Tab 80 MG PO BID Tamsulosin Hcl (Flomax) 0.4 Mg Cap 0.4 MG PO DAILY Discontinued Medications: Triamcinolone Acetonide (Topic (Triderm) 0.1 % Cre 1 APPLN TOP BID PRN for RED RASH Admission Information HPI (per Admitting provider): 9-year-old male who presents the ED with fever. 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 Patient completed radiation and chemotherapy last month for the tongue cancer and radiation therapy to his spine metastases. A couple of days ago, patient noted increased redness around his PEG tube site. It has significantly gotten worse over the past 2 days. Patient had a fever today of 103.6 at home. He reports chronic drainage from around the PEG tube site, has not noticed any change in the drainage. He had been taking some food and liquids and by mouth however developed a mucositis and has been unable to recently. He denies abdominal pain, nausea, vomiting, diarrhea. No chest pain , palpitations, shortness of breath, lightheadedness, dizziness, diaphoresis, or syncopal events. He denies any urinary symptoms. In the ED, patient is febrile at 39.4 and mildly tachycardic in the low 100s. No leukocytosis and lactic acid is normal. In the ED, patient was given IV Zosyn, IV vancomycin, IVF, and Tylenol. Physical Exam (per Admitting): General Appearance: WD/WN, no apparent distress, + pertinent finding ( Chronically ill-appearing) Head: normocephalic, atraumatic Eyes: normal inspection, EOMI, sclerae normal ENT: hearing grossly normal, + muffled/hoarse voice (Due to mucous), + pertinent finding (Mucous membranes moist; right side of tongue edematous) Neck: supple, no JVD, trachea midline Respiratory/Chest: lungs clear, normal breath sounds, no respiratory distress Cardiovascular: no edema, normal peripheral pulses, + tachycardia (Heart rate in the low 100s) Abdomen/GI: normal bowel sounds, soft, no organomegaly, + pertinent finding (PEG tube in place to left upper quadrant with significant surrounding erythema , warmth to touch, PEG tube site tender) Extremities/Musculoskelatal: normal inspection, no calf tenderness, normal capillary refill Neurologic/Psych: no motor/sensory deficits, alert, normal mood/affect, oriented x 3 Skin: normal color, warm/dry Hospital Course Hospital Course and Discharge Plans Patient was admitted for sepsis and likely source is the cellulitis around the PEG tube site -empirically on Vancomycin and Zosyn on admission -CT ABD/pelvis did not reveal intraabdominal abscess -culture of PEG tube with Group A beta strep and no sensitivities to follow -Gastroenterology service advises that it is okay to continue use of the PEG -Blood cultures from 11/19/17 with no growth to date. Vancomycin stopped on . Zosyn was continued up to 11/22/17. 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 Follows with Dr. Rio St, Dr. Adiel St, Dr. Burk , Dr. Anderson -The mucositis / right sided swelling of tongue and neck has not changed since hospital admission and without pain. Patient reports that this situation has been chronic. These findings are likely due to side effects from chemo therapy and radiation. Advise that patient continue follow up with his cancer doctors and that he has follow up appointment on 12/01/2017 11:[address] MD Hematology/Oncology [facility] ATRIAL FIBRILLATION -Rhythm controlled on sotalol, continue -Anticoagulated on Xarelto, continue HYPERTENSION -BP controlled, continue amlodipine PVD -Continue Pletal (Cilostazol) Primary Discharge Diagnosis: abdomen wall cellulitis secondary to Group A beta strep ((infection around PEG site tube of the skin) Secondary Diagnosis Mucositis secondary to cancer treatments Enteral Nutrition through PEG tube Anticoagulated on Xarelto Discharge Instructions -Infectious disease consult requested for antibiotic regimen abdomen wall cellulitis (infection around PEG site tube of the skin) secondary to Group A beta strep and recommended to change antibiotics to PO keflex 500mg po bid x 14 days for hospital discharge -Patient can use Aquaphor on the skin (patient has supply) and should avoid topical steroids Follow up with 12/01/2017 11:15 AM Rio tS MD Hematology/Oncology [facility] 12/04/2017 11:00 AM Isaac A Sulman, DO General Internal Medicine [facility] (Hospital Doctor has called [facility] appointment line [phone] for messaging the primary care clinic to try to schedule earlier appointment than this date) 12/15/2017 8:20 AM Luis Enrique Mendes DO Gastroenterology, [facility] Total time spent on discharge = 40 minutes This includes examination of the patient, discharge planning, medication reconciliation, and communication with other providers. Discharge Instructions see above
[2017-11-22 13:20] VITALS: BP 129/72; PULSE 81; TEMP 36.7; O2SAT 97
[2017-11-22] MEDS ORDERED: CEPHALEXIN MONOHYDRATE 500 MG CAP PO SCH (20:00)
== END 2017-11-22 14:59 | disposition home or self-care (01) | DRG 872 ==
LOC: C.EDB 16:09 → C.4E 18:24 → UNDOADMIN 18:24 → EDBEDREQSVC 18:35 → ENRESERV 19:24
PROVIDERS: ADMIT Hospitalist; ATTEND Hospitalist
DX: A40.0 Sepsis due to streptococcus, group A (principal); L03.311 Cellulitis of abdominal wall; C79.51 Secondary malignant neoplasm of bone; Z93.1 Gastrostomy status; K12.31 Oral mucositis (ulcerative) due to antineoplastic therapy; T45.1X5A Adverse effect of antineoplastic and immunosuppressive drugs, initial encounter; K12.33 Oral mucositis (ulcerative) due to radiation; C01 Malignant neoplasm of base of tongue; C61 Malignant neoplasm of prostate; R13.10 Dysphagia, unspecified; I11.9 Hypertensive heart disease without heart failure; I48.91 Unspecified atrial fibrillation; N26.1 Atrophy of kidney (terminal); I73.9 Peripheral vascular disease, unspecified; J44.9 Chronic obstructive pulmonary disease, unspecified; Z51.81 Encounter for therapeutic drug level monitoring; Z79.899 Other long term (current) drug therapy; Z79.01 Long term (current) use of anticoagulants; Z79.82 Long term (current) use of aspirin; Z86.718 Personal history of other venous thrombosis and embolism; Z88.1 Allergy status to other antibiotic agents; Z91.018 Allergy to other foods; Z88.8 Allergy status to other drugs, medicaments and biological substances; Z88.5 Allergy status to narcotic agent; Z82.49 Family history of ischemic heart disease and other diseases of the circulatory system; Z82.3 Family history of stroke; W88.1XXA Exposure to radioactive isotopes, initial encounter; Y84.2 Radiological procedure and radiotherapy as the cause of abnormal reaction of the patient, or of later complication, without mention of misadventure at the time of the procedure

== ENCOUNTER → 2018-02-02 | Outpatient (CLI) | payer OTHER ==
[~2018-02-02] MED LIST changes: -ACET-1256 PO; -AMLO-110 PO; +AMLO5TAB3 PO; -ASCO10003 PO; +ASCO100061 PO; -ASPCH81X PO; +ASPI-461 PO; -CALC-5 PO; +CALC500T PO; +CLIN1GEL TOP; -CYAN100020 PO; +CYAN10005 PO; -DGRI80 INJ; +DGRI80 SQ; +DICL1GEL12 TOP; -MULT-1093 PO; +MULT-190 PO; +MULTTAB58 PO; -NIAC500T11 PO; -ONDA-170 PO; -SOTA80TA PO; +SOTA80TA20 PO; +TYLOTC500 PO; -[UNRECOGNIZED DRUG - CODE]; +[UNRECOGNIZED DRUG - CODE] PO; -[UNRECOGNIZED DRUG - OTHER]; -[UNRECOGNIZED DRUG - SUPPLY] TOP
[2018-02-02 07:21] VITALS: BP 111/67; PULSE 68; TEMP 37.1; O2SAT 99
--- NOTE | 2018-02-02 10:35 | Radiation Oncology Follow-Up ---
Radiation Oncology Follow-Up Date of Visit Feb 02, 2018. Reason For Visit To discuss Xofigo Radiation Completion Date Base of tongue 09/30/17;Lumbar spine 09/09/17;Prostate 01/19/17 Diagnosis (1) Squamous cell carcinoma of base of tongue Status: Resolved Onset Date: 06/17/2017 Stage: IV Permanent Comment: Carcinoma of the skin of the preauricular area Swelling and discomfort leading to the CT 06/04/2017 Finding of a mass of the right base of the tongue Status post FNA of a right level II lymph node 06/17/2017 Squamous cell carcinoma with focal keratinization Status post PET/CT 06/24/2017 FDG avidity at L4, metastatic squamous cell carcinoma versus metastatic prostate carcinoma Biopsy to be scheduled. Clinical stage T3 N2c M1 Status post completion of combined radiation and chemotherapy. Radiation was completed September 30, 2017. He received 6996 cGy Last Edited By: Massiel Feliciano on Oct 09, 2017 10:11 (2) Prostate cancer Status: Chronic Onset Date: 08/15/2016 Stage: IV Permanent Comment: Rising PSA, pretreatment PSA 42.8 Status post ultrasound-guided biopsies 08/15/2016 Adenocarcinoma of the prostate Joanne 4+3 and 4+4 Prostate volume 46.7 Prostate density 0.916 Initiation of hormone suppression, plan for continuation for 2 years Status post completion of radiation therapy with IMRT/IGRT 01/19/2017. Received 7,740 cGy. 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 He received 3000 cGy. Castration resistant with PSA elevation at 16.6 Progression of bone metastasis on PET/CT December 23, 2017 Last Edited By: Massiel Feliciano on Feb 02, 2018 10:24 History of Present Illness Mr. Baker has multiple comorbidities who has been suffering with low back pain and urinary obstructive symptoms. He was seen by Dr. George Anderson who evaluated the patient and did perform a digital rectal exam which did reveal a firm prostate gland that was very tender on the right side. The patient then had a PSA drawn on 08/07/[address] Anderson recommended a transrectal ultrasound-guided biopsy of the prostate which was completed on 04/2017 and revealed a 46.7 cc prostate gland. Pathology revealed prostate cancer involving 8/9 cores. The highest Joanne score was 4+4 and there was perineural invasion present. The patient did have a CT of the abdomen and pelvis and bone scan completed on 09/02/2016 which revealed no evidence of pelvic lymph node involvement or bony metastatic disease. The CT abdomen and pelvis did note mild bilateral hydroureteronephrosis potentially due to bladder outlet obstruction and prostatic enlargement. Dr. Anderson discuss treatment options including surgery potentially followed by adjuvant radiation therapy as well as androgen deprivation therapy with radiation therapy. Due to the patient's high risk prostate cancer, the patient has been started on firmagon by Dr. Anderson. We are now seeing the patient in consultation to discuss the role of radiation therapy. Currently, the patient is doing relatively okay. His urinary IPSS score is 19/ 35 and his EPIC QoL score is 29/60. He denies any hematuria but still has some mild rectal plane. He denies any rectal bleeding at this point. He did receive his first firmagon injection on 09/11/2016. All options of treatment were reviewed with patient. Ultimately his decision was to receive hormone suppression and external beam radiation therapy. The radiation was completed 01/19/2017. He received 7740 cGy. Mr. Baker has continued grade of follow-up with Dr. Anderson. He is been having monthly Fermagon injections. He had a PSA 02/16/2017 that was 0.2. He had a PSA on 06/11/2017 and that was found to be 2.9. He has had a known history of multiple skin cancers that have been removed. He has had for prior Mohs procedures. He developed a skin cancer in the right preauricular area. This was removed. He unfortunately developed some pain and swelling. The swelling was noted in April. He also began to note decreased motility of the tongue. He also had a change in his voice. He had noted this as well as his . Due to the swelling a CT was obtained on 06/04/2017.IMPRESSION:1. Findings concerning for a 3.6 cm enhancing nodular mass at the right base of the tongue without michael extension posterolaterally along the glossotonsillar sulcus. Direct visualization is advised. 2. Bilateral heterogeneously enhancing lymph nodes concerning for metastatic spread of disease with central necrosis. Importantly, extracapsular extension of lymph node involvement is suspected given the ill-defined soft tissue mass infiltrating the right sternocleidomastoid muscle. The largest discrete lymph node in the right cervical chain measures 13 mm in the long axis, and the largest lymph node in the left cervical chain measures 15 mm in the long axis. He then underwent a biopsy on 06/17/2017. Biopsy was taken from a right level II lymph node. This was an FNA area this revealed malignant cells. Squamous cell carcinoma, with focal keratinization. Specimen [id number]. He was sent for a PET scan 06/24/2017. This showed a large ill-defined region of metabolic activity at the tongue base, representing known primary tumor. Irregular metabolically active soft tissue extending into the right level IIA neck. Metastatic lymphadenopathy is favored with direct tumor extension being less likely. Invasion/involvement of local structures is better depicted on recently obtained contrast enhanced CT of the neck. Bilateral metastatic cervical lymphadenopathy. Metabolically active metastasis in L4 vertebral body with associated mild compression deformity and suspected superior endplate erosion. Questionable metabolic focus in the spinous process of L2 made represent additional site of metastatic disease. He has had a 10 pound weight loss since April. He notes some difficulty with lying on his back to sleep at night. He has to breathe through his mouth. He had been seen by the head and neck tumor Board 07/08/[address] [facility]. Consensus was a recommendation to biopsy the L4 FDG avidity. If the L4 lesion is prostate in origin and recommendation is for primary chemoradiation. If the L4 his metastatic squamous cell carcinoma than recommendation is for palliative chemotherapy radiation. Arrangements have been made for him to have a biopsy through interventional radiology and [facility] of the L4 lesion. Patient did not keep this appointment. He was concerned about having the biopsy while on Xarelto. Instructions were given and anticoagulation was held. He underwent a biopsy of the L4 vertebrae August 03, 2017. This showed atypical cells of undetermined significance. Where atypical epithelial cells, metastasis from prostate cannot be ruled out. With the findings of the studies and biopsy it was felt the patient should undergo radiation therapy to L4 for the oligo metastasis. He began treatment to the head neck region. He was then given the treatment to the lumbar spine also. Treatment to the lumbar spine was completed September 09, 2017. He received 3000 cGy. The treatment to the head and neck was completed on September 30, 2017. He received 6996 cGy. While receiving the treatment to the head and neck he received chemotherapy with Erbitux. Interim History He has been followed closely by his medical oncologist. A recheck PET scan on December 23, 2017 revealed interval resolution of the head and neck primary lesion as well as the FDG avid metastatic lymphadenopathy. This is consistent with response to interval therapy. There were multiple increasing FDG active corresponding to scattered dense lesions within the bony structures, likely representing metastatic disease. Previously intensively avid lesion within the L4 vertebral body has nearly resolved in the interim. Hypometabolism at the right frontoparietal junction, unclear etiology or significance. Follow-up MRI of the brain was recommended. He also has several new pulmonary nodules, possibly infectious or inflammatory. Neoplasm cannot be entirely excluded. Follow-up diagnostic chest CT was recommended in 3 months. Due to the progression of bone metastasis he was referred to our office to discuss radiation therapy. He is having some pain in the lower lumbar spine right SI area. This radiates to the right hip. He gave this a level 2 in pain. His pain is controlled by the gabapentin. He also uses Tylenol. There has been some pain also in the shoulder which she gives a level 1. Allergies Coded Allergies: Stitzer (Verified Allergy, Intermediate, "Tongue blisters with too many walnuts", 11/19/17) Morphine (Verified Adverse Reaction, Severe, "PASSED OUT", 11/19/17) Prednisone (Verified Adverse Reaction, Severe, LOWER EXTREMITY EDEMA, 11/19) Azithromycin (Verified Adverse Reaction, Mild, "Temp spike", 11/20/17) Statins (Verified Adverse Reaction, Unknown, CREATINKINASE, 11/20/17) Home Medications Scheduled Acetaminophen (Tylenol), 1,000 MG PO BID Allopurinol (Zyloprim), 300 MG PO DAILY Ascorbic Acid (Ascorbic Acid), 1,000 MG PO DAILY Aspirin (Aspirin), 81 MG PO DAILY Calcium Gluconate (Calcium Gluconate), 500 MG PO BID Cholecalciferol (Vitamin D3), 1 TAB PO BID Cilostazol (Pletal), 100 MG PO DAILY Clindamycin Phosphate (Topical (Cleocin-T), 1 APPLN TOP QAM Cyanocobalamin (Vitamin B-12), 1,000 MCG PO BID Degarelix Acetate (Firmagon), 1 APPLN SQ MONTHLY Diclofenac Sodium (Topical) (Voltaren 1% Top Gel), 1 APPLN TOP DAILY Fexofenadine Hcl (Meme Allergy), 1 TAB PO DAILY Gabapentin (Neurontin), 300 MG PO BID Inositol Niacinate (Niacin Flush Free), 2 CAP PO DAILY Multiple Vitamin (Multivitamin), 1 TAB PO DAILY Nutritional Supplements (Isosource 1.5 Jonn), 500 ML PEG DAILY Ocuvite Preservision (Ocuvite Preservision), 2 TAB PO DAILY Rivaroxaban (Xarelto), 20 MG PO DAILY Sotalol Hcl (Betapace), 80 MG PO BID Tamsulosin Hcl (Flomax), 0.4 MG PO DAILY Review of Systems Gastrointestinal: Symptoms: WNL Oral: Symptoms: Parenteral/Ent. Support Other Oral Symptoms: See below notations Respiratory: Sputum Character: Continues to have sensation of something in the back of his throat Other Respiratory: Throat clearing of mucus; Urinary: Comments: Continues tamsulosin Skin: Symptoms: No Problems Other Skin Symptoms: Waddle present under chin Physical Exam Vital Signs Date Time Temp Pulse Resp B/P (MAP) Pulse Ox O2 Delivery O2 Flow Rate FiO2 02/02/18 07:21 37.1 68 16 111/67 99 Fatigue: None General Appearance: no apparent distress Eyes: normal inspection ENT: hearing grossly normal, + pertinent finding (There are postoperative changes of the tongue. There are no visible lesions. He has dryness of the mouth. Mild erythema with no exudates.) Neck: no adenopathy, + pertinent finding (There is a well-healed incision of the right neck. There are no palpable masses or adenopathy. He does have submental edema.) Respiratory/Chest: lungs clear, no respiratory distress, no accessory muscle use Cardiovascular: regular rate, rhythm, no gallop, no murmur Extremities: no pedal edema Neurologic/Psychiatric: no motor/sensory deficits, alert, normal mood/affect Skin: warm/dry Lymphatic: no adenopathy Additional Exam Notes: He has mild tenderness of the paraspinous musculature of the lumbar spine to the right. There is tenderness of the right SI joint area. There is mild tenderness of the right hip. He has good range of motion. Pain Management Patient Reports Pain: Yes Initial Pain Intensity: 2.0 Pain Management Plan As reviewed above pain is controlled with gabapentin and Tylenol. Laboratory Laboratory Results: were reviewed Laboratory Comments: Reviewed in the interim history. 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 DATE OF DICTATION:12/23/[address] dated 09/08/2017 and PET-CT dated 06/24/2017. TECHNIQUE Following the intravenous administration of approximately 7.12 mCi of FDG 18 and the oral administration of Gastroview, PET/CT imaging was performed from the skull base to the mid thighs 65 minutes following the radiotracer injection. Low-dose CT was performed for anatomic localization and attenuation correction purposes only. The patient's glucose level at the time of radiotracer injection was 103mg/dL. This is a follow up PET/CT for the above indication. FINDINGS PET SCAN: Head / Neck: There is hypo metabolism at the right frontoparietal junction, more prominent in the previous examination. The previous FDG avid right level 2 mass/lymph node has resolved in the interim. There is low level activity throughout the head and neck, consistent with radiation induced inflammation. The right level 1 lymph node has decreased in size and remains non FDG avid. The previously FDG avid small left level 2 lymph node has resolved in the interim. Previous FDG avid mass at the posterior tongue base is no longer noted. Chest: There is low level FDG activity corresponding to reticulonodular opacity in the lateral aspect of the left upper lobe. There is also low level activity corresponding to a sub solid nodule in the left apex, well below 1 cm in size. Abdomen: No abnormal uptake can be identified. Pelvis: Low level uptake corresponding to vague soft tissue opacity in the lower abdominal subcutaneous fat is likely inflammatory. Musculoskeletal / Other: There is FDG activity corresponding to vague area of sclerosis along the left ischial tuberosity with a maximum SUV of 4.62. There is a focal area of uptake corresponding to sclerosis along the inferior margin of left sacral wing with a maximum SUV of 3.49. There is focal activity within the central aspect of the T11 vertebral body, without distinct mass. There is focal uptake within the medial aspect of the left 5th rib, at the costovertebral junction. CT SCAN: Head / Neck: Post radiation changes present within the neck. No new masses are identified within the limits the study. Vascular calcifications are present throughout the carotid arteries and its branches. Chest: MediPort present in the left chest. Vascular calcifications present throughout the aorta and coronary arteries. Multiple pleural based plaques with calcification present throughout both lungs. New parenchymal and subpleural nodularity throughout the lungs is noted. The largest nodule is 9 mm in the left apex. The nodule has no appreciable FDG activity. These nodules could be infectious or neoplastic. CT chest follow-up recommended in 3 months to re- evaluate stability. Abdomen: Peg tube is present. There is ectasia of the infrarenal abdominal aorta. Pelvis: There is severe diverticulosis of the distal colon. Prostate has been removed. Musculoskeletal / Other: The areas of osseous abnormality are as detailed above. These have become slightly more prominent in the interim. The previous area of intense activity within the L4 vertebral body is no longer visualized. IMPRESSION 1. Interval resolution of the head and neck primary lesion as well as the FDG avid metastatic lymphadenopathy. This is consistent with response to interval therapy. 2. Mildly increasing FDG activity corresponding to scattered dense lesions within the bony structures, likely representing metastatic disease. The previous intensely avid lesion within the L4 vertebral body has nearly resolved in the interim. 3. Hypo metabolism at the right frontoparietal junction, unclear etiology or significance. Follow-up with MRI of the brain could be performed as clinically desired. 4. Several new pulmonary nodules as detailed above, possibly infectious or inflammatory. Neoplasm cannot be entirely excluded. Follow-up diagnostic chest CT recommended in 3 months to re-evaluate stability/ resolution. Assessment & Plan The patient declined referral to lymphedema therapy for the submental edema. He stated that he was not concerned with the cosmetic outcome. AK Assessment & Plan (Attending) Mr. Baker is a pleasant 72 year old gentleman who presents with locally advanced head/neck cancer (no evidence of local recurrence however multiple small pulmonary nodules noted in the lungs bilaterally). 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 George Anderson and Dr. Rio St. The patient was referred back to us for consideration of Xofigo. Given the fact that the patient has questionable visceral disease involvement, we have advised against Xofigo and have recommended that the patient be considered for second line therapy. We did discuss the case at multidisciplinary tumor board yesterday as well and the group was in agreement to pursue second line systemic therapy agents including Xtandi. I have called Dr. Rio St from medical oncology and he will be scheduling a follow-up shortly with the patient to discuss treatment options. We would like to see the patient back in 3 months for follow-up evaluation. The patient was encouraged to call us if he has any further questions or concerns. Total Time In Follow-Up I spent 20 minutes speaking to the patient in performing examination. I spent 15 minutes reviewing information and completing this note. AK Total Time (Attending) In Follow-Up I spent 30 minutes examining and counseling the patient. I spent 15 minutes completing this note. LADLE MECHANIC Copy To Rio Burk D.O.; Rio St M.D.; Isaac Parekh D.O.; George Anderson M.D.
== END | disposition home or self-care (01) ==
LOC: EDSTATUS 08:45 → C.ONC 08:46
PROVIDERS: ATTEND Urology
DX: Z08 Encounter for follow-up examination after completed treatment for malignant neoplasm (principal); Z92.3 Personal history of irradiation; Z85.810 Personal history of malignant neoplasm of tongue; Z85.46 Personal history of malignant neoplasm of prostate